=== PATIENT | male | born 1960 | race Caucasian/White ===

== ENCOUNTER 2025-08-27 07:22 | Outpatient (REF) | payer MEDICARE, SELFPAY ==
--- OUTSIDE RECORDS SUMMARY | 2025-08-27 07:30 | XMS_ITS | Encounter Summary ---
Author Organization [facility] Address [address] [place] [address] Care Team Providers Care Health And Safety Trainer Name Role Phone Kristine Resendez MD Primary Care Provider [phone] Encounter Details Date Type Department Care Team (Late Contact Info) Description 07/29/2025 Lab Requisition [facility] - Main Lab [address] [facility] [place] [address] Martir Valencia MD [address] [place] [address] Adult failure to thrive; Multiple sclerosis (CMS/HCC V24, CMS/HCC V28) Social History Tobacco Use Types Packs/Day Years Used Date Smoking Tobacco: Never Assessed Sex and Gender Information Value Date Recorded Sex Assigned at Not on file Legal Sex Male 10:24 PM EST Gender Identity Not on file Sexual Orientation Not on file documented as of this encounter Plan of Treatment Upcoming Encounters Date Type Department Care Team (Late Contact Info) Description 12/20/2025 4:00 PM EST Office Visit [facility] [address] [facility] [address] [place] [address] Rena Palumbo MD [address] [place], [place] [phone] documented as of this encounter Procedures Procedure Name Priority Date/Time Associated Diagnosis Comments COMPLETE BLOOD COUNT Routine 07/29/2025 7:35 AM EDT Adult failure to thrive Multiple sclerosis BASIC METABOLIC PANEL Routine 07/29/2025 7:35 AM EDT Adult failure to thrive Multiple sclerosis documented in this encounter Results * (ABNORMAL) Basic metabolic panel (07/29/2025 7:35 AM EDT) Sodium 143 133 - 145 mmol/L LAB CHEMISTRY METHOD 07/29/2025 11:[address] [facility] Potassium 3.8 3.5 - 5.5 mmol/L LAB CHEMISTRY METHOD 07/29/2025 11:[address] [facility] Chloride 108 96 - 110 mmol/L LAB CHEMISTRY METHOD 07/29/2025 11:[address] [facility] CO2 25 21 - 32 mmol/L LAB CHEMISTRY METHOD 07/29/2025 11:[address] [facility] Anion Gap 10 3 - 11 LAB CHEMISTRY METHOD 07/29/2025 11:[address] [facility] Glucose 92 70 - 100 mg/dL LAB CHEMISTRY METHOD 07/29/2025 11:[address] [facility] BUN 33(H) 5 - 25 mg/dL LAB CHEMISTRY METHOD 07/29/2025 11:[address] [facility] Creatinine 0.82 0.70 - 1.30 mg/dL LAB CHEMISTRY METHOD 07/29/2025 11:[address] [facility] eGFR 97 >=60 mL/min/1. 73m2 LAB CHEMISTRY METHOD 07/29/2025 11:[address] [facility] Comment:Calculation based on the Chronic Kidney Disease Epidemiology Collaboration (CKD-EPI) equation refit without adjustment for race. BUN/Creatinine Ratio 40.2 LAB CHEMISTRY METHOD 07/29/2025 11:[address] [facility] Calcium 8.9 8.5 - 10.5 mg/dL LAB CHEMISTRY METHOD 07/29/2025 11:[address] [facility] Blood Venous blood specimen / Unknown Venipuncture / Unknown 07/29/2025 7:35 AM EDT 07/29/2025 9:42 AM EDT Martir Valencia MD LAB BLOOD ORDERABLES Final Result [facility] [address] [place] [address], * Complete blood count (07/29/2025 7:35 AM EDT) WBC 4.9 4.8 - 10.8 K/mcL LAB HEMETOLOGY METHOD 07/29/2025 12:18 PM EDT [facility] RBC 5.30 4.50 - 5.50 M/mcL LAB HEMETOLOGY METHOD 07/29/2025 12:18 PM EDT [facility] Hemoglobin 14.9 13.5 - 17.5 g/dL LAB HEMETOLOGY METHOD 07/29/2025 12:18 PM EDT [facility] Hematocrit 45.6 42.0 - 54.0 % LAB HEMETOLOGY METHOD 07/29/2025 12:18 PM EDT [facility] MCV 86.9 79.0 - 98.0 FL LAB HEMETOLOGY METHOD 07/29/2025 12:18 PM EDT [facility] MCH 28.4 27.0 - 32.0 pcg LAB HEMETOLOGY METHOD 07/29/2025 12:18 PM EDT [facility] MCHC 32.7 32.0 - 37.0 g/dL LAB HEMETOLOGY METHOD 07/29/2025 12:18 PM EDT [facility] RDW 12.9 11.0 - 15.0 % LAB HEMETOLOGY METHOD 07/29/2025 12:18 PM EDT [facility] Platelets 187 130 - 400 K/mcL LAB HEMETOLOGY METHOD 07/29/2025 12:18 PM EDT [facility] MPV 10.3 7.0 - 11.0 FL LAB HEMETOLOGY METHOD 07/29/2025 12:18 PM EDT [facility] NRBC 0.0 <1.0 % LAB HEMETOLOGY METHOD 07/29/2025 12:18 PM EDT [facility] NRBC Absolute 0.00 <0.10 K/mcL LAB HEMETOLOGY METHOD 07/29/2025 12:18 PM EDT [facility] Blood Venous blood specimen / Unknown Venipuncture / Unknown 07/29/2025 7:35 AM EDT 07/29/2025 9:42 AM EDT us Martir Valencia MD LAB BLOOD ORDERABLES Final Result [facility] [address] [place] [address], documented in this encounter Visit Diagnoses Diagnosis Adult failure to thrive Multiple sclerosis documented in this encounter Care Teams Health And Safety Trainer Relationship Specialty Start Date End Date Kristine Resendez MD [address] [place] [address] PCP - General Senior Climate Advisor 11/07/20 documented as of this encounter
--- OUTSIDE RECORDS SUMMARY | 2025-08-27 07:30 | XMS_ITS ---
Author Name [facility] Organization Unknown History of Medication Use Medication Directions Dispensed Refills Start Date End Date Stat us Vumerity 231 MG CPDR TAKE 2 CAPSULES (462MG) BY MOUTH TWICE DAILY. 06/24/2023 active buPROPion (WELLBUTRIN XL) 150 MG 24 hr tablet Take 1 tablet (150 mg total) by mouth daily. 11/18/2020 active Cholecalciferol (Vitamin D3) 50 MCG (1999 UT) capsule Take by mouth. 08/18/2018 act alissa Problems Problem Status Onset Date Problem Type Date of Resolution Source Urinary retention active 2024-01-09 ProblemAct [facility] Constipation active 2024-01-09 ProblemAct [facility] Chronic indwelling Godwin catheter active 2024-01-09 ProblemAct [facility] Neurogenic bladder active 2024-01-09 ProblemAct [facility] Urinary urgency active 2024-01-[address] [facility] Vitamin D deficiency active 2024-01-09 ProblemAct [facility] Disease due to severe acute respiratory syndrome coronavirus 2 (SARS-CoV-2) active 2022-08-01 ProblemAct C [facility] Benign prostatic hyperplasia active 2009-09-09 ProblemAct [facility] Microscopic hematuria active 2024-01-09 ProblemAct [facility] Hypertriglyceridemia active 2024-01-09 ProblemAct [facility] Multiple sclerosis active 2024-01-09 ProblemAct [facility]
--- OUTSIDE RECORDS SUMMARY | 2025-08-27 07:30 | XMS_ITS | Encounter Summary ---
Author Organization [facility] Address [address] [place] [address] Care Team Providers Care Underwear Finisher Name Role Phone Kristine Resendez MD Primary Care Provider [phone] Encounter Details Date Type Department Care Team (Late Contact Info) Description 07/05/2025 Lab Requisition [facility] - Main Lab [address] [facility] [place] [address] Martir Valencia MD [address] [place] [address] Adult failure to thrive; Pure hyperglyceridemia; Trigeminal neuralgia Social History Tobacco Use Types Packs/Day Years [...] Description 12/20/2025 4:00 PM EST Office Visit [facility] [address] [facility] [address] [place] [address] Rena Palumbo MD [address] [place] [address] documented as of this encounter Procedures Procedure Name Priority Date/Time Associated Diagnosis Comments CBC WITH AUTO DIFFERENTIAL Routine 07/05/2025 8:50 AM EDT Adult failure to thrive Pure hyperglyceridemia Trigeminal neuralgia CBC AND DIFFERENTIAL Routine 07/05/2025 8:50 AM EDT Adult failure to thrive Pure hyperglyceridemia Trigeminal neuralgia COMPREHENSIVE METABOLIC PANEL Routine 07/05/2025 8:50 AM EDT Adult failure to thrive Pure hyperglyceridemia Trigeminal neuralgia documented in this encounter Results * (ABNORMAL) CBC auto differential (07/05/2025 8:50 AM EDT) [facility] WBC 7.9 4.8 - 10.8 K/mcL LAB HEMETOLOGY METHOD 07/05[facility]2025 [facility] RBC 5.80(H) 4.50 - 5.50 M/mcL LAB HEMETOLOGY METHOD 07/05/2025 1:08 PM [facility] Hemoglobin 16.4 13.5 - 17.5 g/dL LAB HEMETOLOGY METHOD 07/05/2025 1:08 PM [facility] Hematocrit 48.9 42.0 - 54.0 % LAB HEMETOLOGY METHOD 07/05/2025 1:08 PM [facility] MCV 84.9 79.0 - 98.0 FL LAB HEMETOLOGY METHOD 07/05/2025 1:08 PM [facility] MCH 28.5 27.0 - 32.0 pcg LAB HEMETOLOGY METHOD 07/05/2025 1:08 PM [facility] MCHC 33.5 32.0 - 37.0 g/dL LAB HEMETOLOGY METHOD 07/05/2025 1:08 PM [facility] RDW 12.6 11.0 - 15.0 % LAB HEMETOLOGY METHOD 07/05/2025 1:08 PM [facility] Platelets 311 130 - 400 K/mcL LAB HEMETOLOGY METHOD 07/05/2025 1:08 PM [facility] MPV 10.4 7.0 - 11.0 FL LAB HEMETOLOGY METHOD 07/05/2025 1:08 PM [facility] NRBC 0.0 <1.0 % LAB HEMETOLOGY METHOD 07/05/2025 1:08 PM [facility] NRBC Absolute 0.00 <0.10 K/mcL LAB HEMETOLOGY METHOD 07/05/2025 1:08 PM [facility] Neutrophils Relative 76.9 % LAB HEMETOLOGY METHOD 07/05/2025 1:08 PM [facility] Lymphocytes Relative 10.6 % LAB HEMETOLOGY METHOD 07/05/2025 1:08 PM [facility] Monocytes Relative 9.3 % LAB HEMETOLOGY METHOD 07/05/2025 1:08 PM [facility] Eosinophils Relative 1.6 % LAB HEMETOLOGY METHOD 07/05/2025 1:08 PM [facility] Basophils Relative 1.1 % LAB HEMETOLOGY METHOD 07/05/2025 1:08 PM [facility] Immature Granulocytes Relative 0.5 % LAB HEMETOLOGY METHOD 07/05/2025 1:08 PM [facility] Neutrophils Absolute 6.10 1.50 - 7.00 K/mcL LAB HEMETOLOGY METHOD 07/05/2025 1:08 PM [facility] Lymphocytes Absolute 0.84(L) 1.00 - 5.00 K/mcL LAB HEMETOLOGY METHOD 07/05/2025 1:08 PM [facility] Monocytes Absolute 0.74 0.20 - 1.00 K/mcL LAB HEMETOLOGY METHOD 07/05/2025 1:08 PM [facility] Eosinophils Absolute 0.13 0.00 - 0.50 K/mcL LAB HEMETOLOGY METHOD 07/05/2025 1:08 PM EDT [facility] Basophils Absolute 0.09 0.00 - 0.20 K/mcL LAB HEMETOLOGY METHOD 07/05/2025 1:08 PM EDT [facility] Immature Granulocytes Absolute 0.04(H) 0.00 - 0.03 K/mcL LAB HEMETOLOGY METHOD 07/05/2025 1:08 PM EDT [facility] Blood Venous blood specimen / Unknown Venipuncture / Unknown 07/05/2025 8:50 AM EDT 07/05/2025 11:34 AM EDT Martir Valencia MD LAB BLOOD ORDERABLES Final Result [facility] [address] [place] [address], * Comprehensive metabolic panel (07/05/2025 8:50 AM EDT) Sodium 137 133 - 145 mmol/L LAB CHEMISTRY METHOD 07/05/2025 1:27 PM [facility] Potassium 4.3 3.5 - 5.5 mmol/L LAB CHEMISTRY METHOD 07/05/2025 1:27 PM [facility] Chloride 105 96 - 110 mmol/L LAB CHEMISTRY METHOD 07/05/2025 1:27 PM [facility] CO2 24 21 - 32 mmol/L LAB CHEMISTRY METHOD 07/05/2025 1:27 PM [facility] Anion Gap 8 3 - 11 LAB CHEMISTRY METHOD 07/05/2025 1:27 PM [facility] Glucose 87 70 - 100 mg/dL LAB CHEMISTRY METHOD 07/05/2025 1:27 PM [facility] BUN 22 5 - 25 mg/dL LAB CHEMISTRY METHOD 07/05/2025 1:27 PM [facility] Creatinine 0.80 0.70 - 1.30 mg/dL LAB CHEMISTRY METHOD 07/05/2025 1:27 PM [facility] eGFR 98 >=60 mL/min/1. 73m2 LAB CHEMISTRY METHOD 07/05/2025 1:27 PM [facility] Comment:Calculation based on the Chronic Kidney Disease Epidemiology Collaboration (CKD-EPI) equation refit without adjustment for race. BUN/Creatinine Ratio 27.5 LAB CHEMISTRY METHOD 07/05/2025 1:27 PM [facility] Calcium 9.1 8.5 - 10.5 mg/dL LAB CHEMISTRY METHOD 07/05/2025 1:27 PM [facility] AST (SGOT) 19 10 - 42 unit/L LAB CHEMISTRY METHOD 07/05/2025 1:27 PM [facility] ALT (SGPT) 29 10 - 60 unit/L LAB CHEMISTRY METHOD 07/05/2025 1:27 PM [facility] Alkaline Phosphatase 78 42 - 121 unit/L LAB CHEMISTRY METHOD 07/05/2025 1:27 PM [facility] Total Protein 7.2 6.0 - 8.0 g/dL LAB CHEMISTRY METHOD 07/05/2025 1:27 PM [facility] Albumin 3.4 3.2 - 5.0 g/dL LAB CHEMISTRY METHOD 07/05/2025 1:27 PM [facility] Total Bilirubin 0.6 0.0 - 1.4 mg/dL LAB CHEMISTRY METHOD 07/05/2025 1:27 PM [facility] Blood Venous blood specimen / Unknown Venipuncture / Unknown 07/05/2025 8:50 AM EDT 07/05/2025 11:34 AM EDT us Martir Valencia MD LAB BLOOD ORDERABLES Final Result [facility] [address] [place] [address], documented in this encounter Visit Diagnoses Diagnosis Adult failure to thrive Pure hyperglyceridemia Trigeminal neuralgia documented in this encounter Care Teams Underwear Finisher Relationship Specialty Start Date End Date Kristine Resendez MD [address] [place] [address] PCP - General Spa Director/Finance 11/07/20 documented as of this encounter
--- OUTSIDE RECORDS SUMMARY | 2025-08-27 07:30 | XMS_ITS | Clinical Summary ---
Author Organization [facility] Address [address] [place] [address] Care Team Providers Care Travel Professional Name Role Phone Kristine Resendez MD Primary Care Provider [phone] Allergies No known active allergies Medications Medication Sig Dispensed Refills Start Date End Date Status buPROPion (WELLBUTRIN XL) 150 MG 24 hr tablet Take 1 tablet (150 mg total) by mouth daily. 30 tablet 11 11/18/2020 Active Cholecalciferol (Vitamin D3) 50 MCG (2000 UT) capsule Take by mouth. 0 08/18/2018 Act alissa Vumerity 231 MG CPDR TAKE 2 CAPSULES (462MG) BY MOUTH TWICE DAILY. 360 capsule 0 06/18/2024 Active Active Problems Problem Noted Date Diagnosed Date Chronic indwelling Godwin catheter 01/09/2024 01/09/2024 Constipation 01/09/2024 01/09/2024 Hypertriglyceridemia 01/09/2024 01/09/2024 Microscopic hematuria 01/09/2024 01/09/2024 Overview: workup including ultrasound and cystoscopy negative Multiple sclerosis 01/09/2024 01/09/2024 Neurogenic bladder 01/09/2024 01/09/2024 Urinary retention 01/09/2024 01/09/2024 Urinary urgency 01/09/2024 01/09/2024 Vitamin D deficiency 01/09/2024 01/09/2024 Disease due to severe acute respiratory syndrome coronavirus 2 (SARS-CoV-2) 08/01/2022 01/09/2024 Overview: Problem added by Discern Expert Problem added by Discern Expert Benign prostatic hyperplasia 09/09/2009 Overview: seen by ultrasound of bladder Social History Tobacco Use Types Packs/Day Years Used Date Smoking Tobacco: Never Assessed Sex and Gender Information Value Date Recorded Sex Assigned at Male 11/07/2020 12:30 PM EST Gender Identity Not on file Sexual Orientation Not on file Job Start Date Occupation Industry Not on file Not on file Not on file Last Filed Vital Signs Vital Sign Reading Time Taken Comments Blood Pressure 117/84 12/27/2022 1:48 PM EST Pulse 92 12/27/2022 1:48 PM EST Temperature 36.1 C (96.9 F) 12/27/2022 1:48 PM EST Respiratory Rate - - Oxygen Saturation 94% 12/27/2022 1:48 PM EST Inhaled Oxygen Concentration - - Weight 81.6 kg (180 lb) 03/24/2021 10:48 AM EDT Height 170.2 cm (5' 7 ) 03/24/2021 10:48 AM EDT Body Mass Index 28.19 03/24/2021 10:48 AM EDT Plan of Treatment Health Maintenance Due Date Last Done Comments Hepatitis C Screening 1959 COVID-19 Vaccine (#1) 1959 Depression Screening 1971 BMI Counseling 1977 Preventative Health Evaluation 1977 Colon Cancer Screening (Colonoscopy) 02/21/2004 Shingrix-Zoster Vaccine (1 o f 2) 2009 DTap / Tdap / Td (2 - Tdap) 08/30/2014 08/30/2004 Fall Risk Assessment 02/21/2024 Pneumococcal Vaccine (3 of 3 - PPSV23 or PCV20) 02/21/2024 08/02/2015, 08/30/2004 Influenza Vaccine (#1) 2025 08/13/2017 RSV Adult > 60+ Yrs or (1 - 1-dose 75+ series) 2034 Hepatitis B Vaccines Aged Out No long er eligible based on patient's age to complete this topic RSV Ped < 20 months Aged Out No longe r eligible based on patient's age to complete this topic Care Teams Travel Professional Relationship Specialty Start Date End Date Kristine Resendez MD [address] [address] PCP - General Lumber Chain Offbearer 11/07/20
--- OUTSIDE RECORDS SUMMARY | 2025-08-27 07:30 | XMS_ITS | Encounter Summary ---
Author Organization [facility] Address [address] [place] [address] Care Team Providers Care Sharepoint Specialist Name Role Phone Kristine Resendez MD Primary Care Provider [phone] Encounter Details Date Type Department Care Team (Late Contact Info) Description 07/14/2025 Lab Requisition [facility] - Main Lab [address] [facility] [place] [address] Martir Valencia MD [address] [place] [address] Essential (primary) hypertension Social History Tobacco Use Types Packs/Day Years [...] Description 12/20/2025 4:00 PM EST Office Visit [facility] [address] [facility] [address] [place] [phone] Rena Palumbo MD [address] [place] [address] documented as of this encounter Procedures Procedure Name Priority Date/Time Associated Diagnosis Comments COMPLETE BLOOD COUNT Routine 07/14/2025 6:32 AM EDT Essential (primary) hypertension BASIC METABOLIC PANEL Routine 07/14/2025 6:32 AM EDT Essential (primary) hypertension documented in this encounter Results * (ABNORMAL) Basic metabolic panel (07/14/2025 6:32 AM EDT) Sodium 142 133 - 145 mmol/L LAB CHEMISTRY METHOD 07/14/2025 12:35 PM [facility] Potassium 4.1 3.5 - 5.5 mmol/L LAB CHEMISTRY METHOD 07/14/2025 12:35 PM [facility] Chloride 109 96 - 110 mmol/L LAB CHEMISTRY METHOD 07/14/2025 12:35 PM [facility] CO2 26 21 - 32 mmol/L LAB CHEMISTRY METHOD 07/14/2025 12:35 PM [facility] Anion Gap 7 3 - 11 LAB CHEMISTRY METHOD 07/14/2025 12:35 PM [facility] Glucose 81 70 - 100 mg/dL LAB CHEMISTRY METHOD 07/14/2025 12:35 PM [facility] BUN 29(H) 5 - 25 mg/dL LAB CHEMISTRY METHOD 07/14/2025 12:35 PM [facility] Creatinine 0.81 0.70 - 1.30 mg/dL LAB CHEMISTRY METHOD 07/14/2025 12:35 PM [facility] eGFR 97 >=60 mL/min/1. 73m2 LAB CHEMISTRY METHOD 07/14/2025 12:35 PM [facility] Comment:Calculation based on the Chronic Kidney Disease Epidemiology Collaboration (CKD-EPI) equation refit without adjustment for race. BUN/Creatinine Ratio 35.8 LAB CHEMISTRY METHOD 07/14/2025 12:35 PM [facility] Calcium 8.9 8.5 - 10.5 mg/dL LAB CHEMISTRY METHOD 07/14/2025 12:35 PM [facility] Blood Venous blood specimen / Unknown Venipuncture / Unknown 07/14/2025 6:32 AM EDT 07/14/2025 10:40 AM EDT Martir Valencia MD LAB BLOOD ORDERABLES Final Result [facility] [address] [place] [address], [place] [phone] * Complete blood count (07/14/2025 6:32 AM EDT) WBC 5.8 4.8 - 10.8 K/mcL LAB HEMETOLOGY METHOD 07/14/2025 11:06 AM EDT [facility] RBC 5.30 4.50 - 5.50 M/mcL LAB HEMETOLOGY METHOD 07/14/2025 11:06 AM [facility] Hemoglobin 15.2 13.5 - 17.5 g/dL LAB HEMETOLOGY METHOD 07/14/2025 11:06 AM [facility] Hematocrit 46.1 42.0 - 54.0 % LAB HEMETOLOGY METHOD 07/14/2025 11:06 AM [facility] MCV 87.3 79.0 - 98.0 FL LAB HEMETOLOGY METHOD 07/14/2025 11:06 AM [facility] MCH 28.8 27.0 - 32.0 pcg LAB HEMETOLOGY METHOD 07/14/2025 11:06 AM [facility] MCHC 33.0 32.0 - 37.0 g/dL LAB HEMETOLOGY METHOD 07/14/2025 11:06 AM [facility] RDW 12.7 11.0 - 15.0 % LAB HEMETOLOGY METHOD 07/14/2025 11:06 AM [facility] Platelets 252 130 - 400 K/mcL LAB HEMETOLOGY METHOD 07/14/2025 11:06 AM [facility] MPV 10.2 7.0 - 11.0 FL LAB HEMETOLOGY METHOD 07/14/2025 11:06 AM EDT [facility] NRBC 0.0 <1.0 % LAB HEMETOLOGY METHOD 07/14/2025 11:06 AM EDT [facility] NRBC Absolute 0.00 <0.10 K/mcL LAB HEMETOLOGY METHOD 07/14/2025 11:06 AM EDT [facility] Blood Venous blood specimen / Unknown Venipuncture / Unknown 07/14/2025 6:32 AM EDT 07/14/2025 10:40 AM EDT us Martir Valencia MD LAB BLOOD ORDERABLES Final Result [facility] [address] [place] [address], documented in this encounter Visit Diagnoses Diagnosis Essential (primary) hypertension Unspecified essential hypertension documented in this encounter Care Teams Sharepoint Specialist Relationship Specialty Start Date End Date Kristine Resendez MD [address] [place] [address] PCP - General Canceling Machine Operator 11/07/20 documented as of this encounter
--- OUTSIDE RECORDS SUMMARY | 2025-08-27 07:31 | XMS_ITS | Encounter Summary ---
Author Organization [facility] Address [address] [place] [address] Care Team Providers Care Professor Of Archaeology Name Role Phone Kristine Resendez MD Primary Care Provider [phone] Encounter Details Date Type Department Care Team (Late st Contact Info) Description 11/25/2024 Lab Requisition [facility] - Main Lab [address] [facility] [place] [phone] Melissa Morales PA [address] [place] [address] Gross hematuria Social History Tobacco Use Types Packs/Day Years Used Date Smoking Tobacco: Never Assessed Sex and Gender Information Value Date Recorded Sex Assigned at Not on file Legal Sex Male 10:24 PM EST Gender Identity Not on file Sexual Orientation Not on file documented as of this encounter Plan of Treatment Upcoming Encounters Date Type Department Care Team (Late st Contact Info) Description 12/20/2025 4:00 PM EST Office Visit [facility] [address] [facility] [address] [place] [phone] Rena Palumbo MD [address] [place] [address] documented as of this encounter Procedures Procedure Name Priority Date/Time Associated Diagnosis Comments AP OUTSIDE CONSULT Routine 11/18/2024 12 :00 AM EST Gross hematuria documented in this encounter Results * Anatomic pathology outside consult (11/18/2024 12:00 AM EST) Final Diagnosis A. Urine, Ileal Conduit: Negative for high grade urothelial carcinoma. Scant urothelial cellularity. Results of UroVysion fluorescence in situ hybridization (FISH) testing: CEP3: Normal CEP7: Normal CEP17: Normal LSI 9p21: Normal Interpretation: Normal profile Controls stained appropriately. Note: The results are intended as a screening device and should be interpreted in association with other clinical and pathological findings. 12/04/2024 5:22 PM EST [facility] Clinical Information Gross hematuria R31.0 Urine Cytology/FISH (now) 12/04/2024 5:22 PM [facility] Gross Description A. Ileal Conduit, [id number]: Received is one ThinPrep slide for cytology screen and one ThinPrep slide for UroVysion FISH 12/04/2024 5:22 PM [facility] Disclaimer Unless otherwise specified, all tissue is 10% NB formalin fixed and paraffin embedded. Technical pathology services provided by [facility] at [address], [place] [address] (CLIA #[id number]/Caro Faye MD, Wafer Fabricator) 12/04/2024 5:22 PM [facility] Tissue Ileal biopsy specimen / Unknown 11/18/2024 11/25/2024 11:50 AM EST Melissa RAMIREZ LAB PATHOLOGY ORDERABLES Joi l Result [facility] [address] [place] [address], documented in this encounter Visit Diagnoses Diagnosis Gross hematuria documented in this encounter Care Teams Professor Of Archaeology Relationship Specialty Start Date End Date Kristine Resendez MD [address] [place] [address] PCP - General Experience Specialist 11/07/20 documented as of this encounter
--- OUTSIDE RECORDS SUMMARY | 2025-08-27 07:31 | XMS_ITS | Clinical Summary ---
Author Organization [address] [facility] Address [address] [place] [address] Phone Care Team Providers Care All Around Presser Name Role Phone Kristine Resendez MD Primary Care Provider [phone] Allergies Active Allergy Reactions Criticality Noted Date Comments Pollen Extracts 05/28/2025 Medications buPROPion XL (WELLBUTRIN XL) 150 mg 24 hr tablet Take 1 tablet (150 mg total) by mouth. 11/18/2020 Active B complex tablet Take 1 tablet by mouth 1 (one) time each day. Active gabapentin (Neurontin) 100 mg capsule Take 3 capsules (300 mg total) by mouth 3 (three) times a day. 270 each 11 06/21/2025 06/21/20 26 Active Active Problems Problem Noted Date Diagnosed Date MS (multiple sclerosis) 01/09/2024 Benign prostate hyperplasia 01/09/2024 Chronic indwelling Godwin catheter 01/09/2024 Constipation 01/09/2024 Disease due to severe acute respiratory syndrome coronavirus 2 (SARS-CoV-2) 01/09/2024 Hypertriglyceridemia 01/09/2024 Microscopic hematuria 01/09/2024 Neurogenic bladder 01/09/2024 Urinary retention 01/09/2024 Urinary urgency 01/09/2024 Vitamin D deficiency 01/09/2024 Encounters Date Type Department Care Team Description 07/29/2025 Lab Requisition [facility] - Main Lab [address] [facility] [place] [address] Martir Valencia MD Adult failure to thrive; Multiple sclerosis ([facility] V24, [facility] V28) 07/14/2025 Lab Requisition [facility] - Main Lab [address] [place] [phone] Martir Valencia MD Essential (primary) hypertension 07/05/2025 Lab Requisition [facility] - Main Lab [address] [place] [phone] Martir Valencia MD Adult failure to thrive; Pure hyperglyceridemia; Trigeminal neuralgia 06/25/2025 11:00 AM EDT Telemedicine [facility] [address] [phone] Lea Torres PA MS (multiple sclerosis) ([facility] V24, [facility] V28) (Primary Dx) 06/09/[address] [phone] Lea Torres PA 06/01/2025 Telephone [facility] - [address] [phone] Hermelinda Weaver [place] 05/28/2025 1:30 PM EDT Telemedicine [facility] [address] [phone] Lea Torres PA MS (multiple sclerosis) ([facility] V24, [facility] V28) (Primary Dx) from Last 3 Months Surgical History Surgery Date Site/Laterality Comments OTHER SURGICAL HISTORY PROCEDURE:super pubic Medical History Medical History Date Comments MS (multiple sclerosis) DX:MS (m ultiple sclerosis) ([facility]) Social History Tobacco Use Types Packs/Day Years Used Date Smoking Tobacco: Never Assessed Sex and Gender Information Value Date Recorded Sex Assigned at Not on file Legal Sex Male 10:24 PM EST Gender Identity Not on file Sexual Orientation Not on file Obstetrics History Last Filed Vital Signs Vital Sign Reading Time Taken Comments Blood Pressure 128/88 01/21/2025 3:02 PM EDT Pulse 89 01/21/2025 3:02 PM EDT Temperature 36 C (96.8 F) 01/21/2025 3:02 PM EDT Respiratory Rate - - Oxygen Saturation 96% 01/21/2025 3:02 PM EDT Inhaled Oxygen Concentration - - Weight - - Height - - Body Mass Index - - Plan of Treatment Upcoming Encounters Date Type Department Care Team (Late st Contact Info) Description 12/20/2025 4:00 PM EST Office Visit [facility] [address] [facility] [address] [place] [phone] Rena Palumbo MD [address] [place] [address] Health Maintenance Due Date Last Done Comments Colorectal Cancer Screening: Colonoscopy 1960 Zoster Vaccines (1 of 2) 2009 Pneumococcal Vaccine: 50+ Years (3 of 3 - PCV20 or PCV21) 08/02/2020 08/02/2015, 08/30/2004 Abdominal Aortic Aneurysm (AAA) Screen 10/14/2022 Cholesterol Screening (Lipid Panel) 10/14/2022 Hepatitis C Screening 10/14/2022 Social Influencers of Health Screening 10/14/2022 Medicare Annual Wellness Visit 11/07/2023 11/07/2022 Falls Risk Assessment 02/21/2024 DTaP,Tdap,and Td Vaccines (4 - Td or Tdap) 07/06/2024 07/06/2014, 02/25/2014, 08/30/2004 Depression Screening 11/11/2024 COVID-19 Vaccine (1 - 2023-2 5 season) 2025 Influenza Vaccine (#1) 2025 08/13/2017 Hypertension/CHF/CAD Annual BMP Blood Test 07/29/2026 07/29/2025, 07/14/2025, 07/05/2025 RSV Immunization Adult Patients (1 - 1-dose 75+ series) 2034 HIB Vaccines Aged Out No longer eligi ble based on patient's age to complete this topic HPV Vaccines Aged Out No longer eligi ble based on patient's age to complete this topic Hepatitis A Vaccines Aged Out No long er eligible based on patient's age to complete this topic Hepatitis B Vaccines Aged Out No long er eligible based on patient's age to complete this topic IPV Vaccines Aged Out No longer eligi ble based on patient's age to complete this topic MMR Vaccines Aged Out No longer eligi ble based on patient's age to complete this topic Meningococcal ACWY Vaccine Aged Out N o longer eligible based on patient's age to complete this topic Meningococcal B Vaccine Aged Out No l onger eligible based on patient's age to complete this topic RSV Immunization Patients Under 20 months Aged Out No longer eligible b ased on patient's age to complete this topic Varicella Vaccines Aged Out No longer eligible based on patient's age to complete this topic Procedures Procedure Name Priority Date/Time Associated Diagnosis Comments BASIC METABOLIC PANEL Routine 07/29/2025 7:35 AM EDT Adult failure to thrive Multiple sclerosis COMPLETE BLOOD COUNT Routine 07/29/2025 7:35 AM EDT Adult failure to thrive Multiple sclerosis BASIC METABOLIC PANEL Routine 07/14/2025 6:32 AM EDT Essential (primary) hypertension COMPLETE BLOOD COUNT Routine 07/14/2025 6:32 AM EDT Essential (primary) hypertension CBC WITH AUTO DIFFERENTIAL Routine 07/05/2025 8:50 AM EDT Adult failure to thrive Pure hyperglyceridemia Trigeminal neuralgia COMPREHENSIVE METABOLIC PANEL Routine 07/05/2025 8:50 AM EDT Adult failure to thrive Pure hyperglyceridemia Trigeminal neuralgia CBC AND DIFFERENTIAL Routine 07/05/2025 8:50 AM EDT Adult failure to thrive Pure hyperglyceridemia Trigeminal neuralgia from Last 3 Months Results * Complete blood count (07/29/2025 7:35 AM EDT) Only the most recent of2 resultswithin the time period is included. WBC 4.9 4.8 - 10.8 K/mcL LAB HEMETOLOGY METHOD 07/29/2025 12:18 PM EDT [facility] RBC 5.30 4.50 - 5.50 M/mcL LAB HEMETOLOGY METHOD 07/29/2025 12:18 PM EDT [facility] Hemoglobin 14.9 13.5 - 17.5 g/dL LAB HEMETOLOGY METHOD 07/29/2025 12:18 PM [facility] Hematocrit 45.6 42.0 - 54.0 % LAB HEMETOLOGY METHOD 07/29/2025 12:18 PM [facility] MCV 86.9 79.0 - 98.0 FL LAB HEMETOLOGY METHOD 07/29/2025 12:18 PM [facility] MCH 28.4 27.0 - 32.0 pcg LAB HEMETOLOGY METHOD 07/29/2025 12:18 PM [facility] MCHC 32.7 32.0 - 37.0 g/dL LAB HEMETOLOGY METHOD 07/29/2025 12:18 PM [facility] RDW 12.9 11.0 - 15.0 % LAB HEMETOLOGY METHOD 07/29/2025 12:18 PM [facility] Platelets 187 130 - 400 K/mcL LAB HEMETOLOGY METHOD 07/29/2025 12:18 PM [facility] MPV 10.3 7.0 - 11.0 FL LAB HEMETOLOGY METHOD 07/29/2025 12:18 PM [facility] NRBC 0.0 <1.0 % LAB HEMETOLOGY METHOD 07/29/2025 12:18 PM [facility] NRBC Absolute 0.00 <0.10 K/mcL LAB HEMETOLOGY METHOD 07/29/2025 12:18 PM [facility] Blood Venous blood specimen / Unknown Venipuncture / Unknown 07/29/2025 7:35 AM EDT 07/29/2025 9:42 AM EDT us Martir Valencia MD LAB BLOOD ORDERABLES Final Result [facility] [address] [place] [address], * (ABNORMAL) Basic metabolic panel (07/29/2025 7:35 AM EDT) Only the most recent of2 resultswithin the time period is included. Sodium 143 133 - 145 mmol/L LAB CHEMISTRY METHOD 07/29/2025 11:18 AM [facility] Potassium 3.8 3.5 - 5.5 mmol/L LAB CHEMISTRY METHOD 07/29/2025 11:18 AM [facility] Chloride 108 96 - 110 mmol/L LAB CHEMISTRY METHOD 07/29/2025 11:18 AM [facility] CO2 25 21 - 32 mmol/L LAB CHEMISTRY METHOD 07/29/2025 11:18 AM [facility] Anion Gap 10 3 - 11 LAB CHEMISTRY METHOD 07/29/2025 11:18 AM [facility] Glucose 92 70 - 100 mg/dL LAB CHEMISTRY METHOD 07/29/2025 11:18 AM [facility] BUN 33(H) 5 - 25 mg/dL LAB CHEMISTRY METHOD 07/29/2025 11:18 AM [facility] Creatinine 0.82 0.70 - 1.30 mg/dL LAB CHEMISTRY METHOD 07/29/2025 11:18 AM [facility] eGFR 97 >=60 mL/min/1. 73m2 LAB CHEMISTRY METHOD 07/29/2025 11:18 AM [facility] Comment:Calculation based on the Chronic Kidney Disease Epidemiology Collaboration (CKD-EPI) equation refit without adjustment for race. BUN/Creatinine Ratio 40.2 LAB CHEMISTRY METHOD 07/29/2025 11:18 AM [facility] Calcium 8.9 8.5 - 10.5 mg/dL LAB CHEMISTRY METHOD 07/29/2025 11:18 AM EDT [facility] Blood Venous blood specimen / Unknown Venipuncture / Unknown 07/29/2025 7:35 AM EDT 07/29/2025 9:42 AM EDT Martir Valencia MD LAB BLOOD ORDERABLES Final Result [facility] [address] [place] [address], [place] [phone] * (ABNORMAL) CBC auto differential (07/05/2025 8:50 AM EDT) WBC 7.9 4.8 - 10.8 K/mcL LAB HEMETOLOGY METHOD 07/05/2025 1:08 PM EDT [facility] RBC 5.80(H) 4.50 - 5.50 M/mcL LAB HEM[facility]OLOGY [facility] Hemoglobin 16.4 13.5 - 17.5 g/dL LAB HEMETOLOGY METHOD 07/05[facility] Hematocrit 48.9 42.0 - 54.0 % LAB HEMETOLOGY METHOD 07/05/2025 1:08 PM EDT [facility] MCV 84.9 79.0 - 98.0 FL LAB HEMETOLOGY METHOD 07/05[facility]2025 [facility] MCH 28.5 27.0 - 32.0 pcg LAB HEMETOLOGY METHOD 07/05/2025 1:08 PM [facility] MCHC 33.5 32.0 - 37.0 g/dL LAB HEMETOLOGY METHOD 07/05/2025 1:08 PM EDT [facility] RDW 12.6 11.0 - 15.0 % LAB HEMETOLOGY METHOD 07/05/2025 1:08 PM [facility] Platelets 311 130 - 400 K/mcL LAB HEMETOLOGY METHOD 07/05/2025 1:08 PM [facility] MPV 10.4 7.0 - 11.0 FL LAB HEMETOLOGY METHOD 07/05/2025 1:08 PM [facility] NRBC 0.0 <1.0 % LAB HEMETOLOGY METHOD 07/05/2025 1:08 PM [facility] NRBC Absolute 0.00 <0.10 K/mcL LAB HEMETOLOGY METHOD 07/05/2025 1:08 PM [facility] Neutrophils Relative 76.9 % LAB HEMETOLOGY METHOD 07/05/2025 1:08 PM [facility] Lymphocytes Relative 10.6 % LAB HEMETOLOGY METHOD 07/05/2025 1:08 PM [facility] Monocytes Relative 9.3 % LAB HEMETOLOGY METHOD 07/05/2025 1:08 PM [facility] Eosinophils Relative 1.6 % LAB HEMETOLOGY METHOD 07/05/2025 1:08 PM [facility] Basophils Relative 1.1 % LAB HEMETOLOGY METHOD 07/05/2025 1:08 PM [facility] Immature Granulocytes Relative 0.5 % LAB HEMETOLOGY METHOD 07/05/2025 1:08 PM [facility] Neutrophils Absolute 6.10 1.50 - 7.00 K/mcL LAB HEMETOLOGY METHOD 07/05/2025 1:08 PM [facility] Lymphocytes Absolute 0.84(L) 1.00 - 5.00 K/mcL LAB HEMETOLOGY METHOD 07/05/2025 1:08 PM [facility] Monocytes Absolute 0.74 0.20 - 1.00 K/mcL LAB HEMETOLOGY METHOD 07/05/2025 1:08 PM EDT [facility] Eosinophils Absolute 0.13 0.00 - 0.50 K/[facility] LAB HEMETOLOGY METHOD 07/05/2025 1:08 PM EDT [facility] Basophils Absolute 0.09 0.00 - 0.20 K/[facility] LAB HEMETOLOGY METHOD 07/05/2025 1:08 PM EDT [facility] Immature Granulocytes Absolute 0.04(H) 0.00 - 0.03 K/[facility] LAB HEMETOLOGY METHOD 07/05/2025 1:08 PM EDT [facility] Blood Venous blood specimen / Unknown Venipuncture / Unknown 07/05/2025 8:50 AM EDT 07/05/2025 11:34 AM EDT Martir Valencia MD LAB BLOOD ORDERABLES Final Result [facility] [address] [place] [address], * Comprehensive metabolic panel (07/05/2025 8:50 AM EDT) Sodium 137 133 - 145 mmol/L LAB CHEMISTRY METHOD 07/05/2025 1:27 PM [facility] Potassium 4.3 3.5 - 5.5 mmol/L LAB CHEMISTRY METHOD 07/05/2025 1:27 PM [facility] Chloride 105 96 - 110 mmol/L LAB CHEMISTRY METHOD 07/05/2025 1:27 PM [facility] CO2 24 21 - 32 mmol/L LAB CHEMISTRY METHOD 07/05/2025 1:27 PM [facility] Anion Gap 8 3 - 11 LAB CHEMISTRY METHOD 07/05/2025 1:27 PM [facility] Glucose 87 70 - 100 mg/dL LAB CHEMISTRY METHOD 07/05/2025 1:27 PM [facility] BUN 22 5 - 25 mg/dL LAB CHEMISTRY METHOD 07/05/2025 1:27 PM [facility] Creatinine 0.80 0.70 - 1.30 mg/dL LAB CHEMISTRY METHOD 07/05/2025 1:27 PM [facility] eGFR 98 >=60 mL/min/1. 73m2 LAB CHEMISTRY METHOD 07/05/2025 1:27 PM [facility] Comment:Calculation based on the Chronic Kidney Disease Epidemiology Collaboration (CKD-EPI) equation refit without adjustment for race. BUN/Creatinine Ratio 27.5 LAB CHEMISTRY METHOD 07/05/2025 1:27 PM [facility] Calcium 9.1 8.5 - 10.5 mg/dL LAB CHEMISTRY METHOD 07/05/2025 1:27 PM [facility] AST (SGOT) 19 10 - 42 unit/L LAB CHEMISTRY METHOD 07/05/2025 1:27 PM [facility] ALT (SGPT) 29 10 - 60 unit/L LAB CHEMISTRY METHOD 07/05/2025 1:27 PM [facility] Alkaline Phosphatase 78 42 - 121 unit/L LAB CHEMISTRY METHOD 07/05/2025 1:27 PM [facility] Total Protein 7.2 6.0 - 8.0 g/dL LAB CHEMISTRY METHOD 07/05/2025 1:27 PM [facility] Albumin 3.4 3.2 - 5.0 g/dL LAB CHEMISTRY METHOD 07/05/2025 1:27 PM [facility] Total Bilirubin 0.6 0.0 - 1.4 mg/dL LAB CHEMISTRY METHOD 07/05/2025 1:27 PM [facility] Blood Venous blood specimen / Unknown Venipuncture / Unknown 07/05/2025 8:50 AM EDT 07/05/2025 11:34 AM EDT us Martir Valencia MD LAB BLOOD ORDERABLES Final Result [facility] [address] [place] [address], [place] [phone] from Last 3 Months Insurance MEDICARE [facility] Care Teams All Around Presser Relationship Specialty Start Date End Date Kristine Resendez MD [address] [place] [address] PCP - General Field Mechanic/Site Lead 11/07/20
[2025-08-27 07:47] LABS: Hematocrit 45.2 % (42.0-52.0); Hemoglobin 15.0 g/dl (14.0-18.0); Imm Gran Abs Auto 0.03 X10*3/uL (0.00-0.03); Imm Gran Pct Auto 0.4 % (0.0-0.4); Lymphocytes Absolute Auto 1.0 X10*3/uL (1.2-4.9); MANUAL DIFF FLAG NO; Mean Corpuscular HGB Conc 33.2 g/dl (31.0-36.0); Mean Corpuscular Hemoglobin 28.7 pg (27.0-33.0); Mean Corpuscular Volume 86.6 fL (80.0-98.0); NRBC Abs Auto 0.000 X10*3/uL (0.0-0.012); NRBC Pct Auto 0.0 /100WBC (0.0-0.2); Platelet Count 210 X10*3/uL (160-400); Red Blood Count 5.22 X10*6/uL (4.60-5.80); White Blood Count 6.7 X10*3/uL (4.8-10.8)
[2025-08-27 08:08] LABS: Alanine Aminotransferase 31 U/L (0-40); Albumin Level 3.8 g/dL (3.5-5.0); Alkaline Phosphatase 58 U/L (39-117); Anion Gap 14 (12-20); Aspartate Amino Transferase 32 U/L (5-37); Blood Urea Nitrogen 32 mg/dL (9-16); Calcium 8.9 mg/dL (8.4-10.2); Carbon Dioxide 22 mmol/L (22-29); Chloride 110 mmol/L (96-108); Cholesterol 215 mg/dL (<200); Estimated Glomerular Filt Rate > 60; HDL Cholesterol 28 mg/dL (>40); Potassium 3.9 mmol/L (3.3-5.1); Sodium 142 mmol/L (135-145); Total Protein 6.6 g/dL (6.5-8.0); Triglycerides 445 mg/dL (<150)
[2025-08-27 08:20] LABS: Vitamin B12 1547 pg/mL (200-900)
[2025-08-30 10:23] LABS: TS Negative Control Passed; TS Panel A 1; TS Panel B 0; TS Positive Control Passed; TSpotTB Negative (Negative)
== END 2025-08-27 07:23 | disposition home or self-care (01) ==
LOC: HO.HSH2W 07:22
PROVIDERS: Visit Provider Internal Medicine Interventional Cardiology
DX: Z11.1 Encounter for screening for respiratory tuberculosis (principal); Z13.6 Encounter for screening for cardiovascular disorders; Z13.0 Encounter for screening for diseases of the blood and blood-forming organs and certain disorders involving the immune mechanism
CPT/HCPCS: 36415; 80053; 80061; 82306; 82607; 85025; 86481

== ENCOUNTER 2025-10-18 20:09 | Inpatient (IN) | payer MEDICARE, SELFPAY ==
[2025-10-18] VITALS (9 sets, daily range): BP systolic 103–117; BP diastolic 68–87; PULSE 88–107; RESP 17–26; TEMP 37.4–38.2; O2SAT 91–97; BMI 27.9
--- NOTE | ~2025-10-18 | XR_ITS ---
CLINICAL HISTORY: SOB 1 view chest x-ray Comparison: None provided Findings: Lungs are clear without acute infiltrates. No pneumothorax. Heart size enlarged. No acute bony abnormalities. Impression: No acute processes This document has been electronically signed by: Radu Hills MD on 10/18/2025 23:06:03
--- NOTE | 2025-10-18 20:29 | ECG_ITS ---
Test Reason : AMS Blood Pressure : */* mmHG Vent. Rate : 102 BPM Atrial Rate : 102 BPM P-R Int : 152 ms QRS Dur : 62 ms QT Int : 348 ms P-R-T Axes : 52 -22 -32 degrees QTcB Int : 453 ms Poor data quality Sinus tachycardia Possible Inferior infarct , age undetermined Abnormal ECG No previous ECGs available Repeat EKG Referred By: Generic ED Physician Electronically Signed By: BALJINDER CERON MD
[2025-10-18 21:17] LABS: MANUAL DIFF FLAG NO
[2025-10-18 21:26] LABS: Appearance Urine Turbid; Glucose Urine UA Negative (Negative); PH 5.5 (5.0-9.0); Specific Gravity - Urine 1.025 (1.005-1.025); UMIC TRIGGER UACC YES
[2025-10-18 21:29] LABS: Hematocrit 48.6 % (42.0-52.0); Hemoglobin 15.9 g/dl (14.0-18.0); Imm Gran Abs Auto 0.05 X10*3/uL (0.00-0.03); Imm Gran Pct Auto 0.5 % (0.0-0.4); Lymphocytes Absolute Auto 1.0 X10*3/uL (1.2-4.9); Mean Corpuscular HGB Conc 32.7 g/dl (31.0-36.0); Mean Corpuscular Hemoglobin 29.2 pg (27.0-33.0); Mean Corpuscular Volume 89.2 fL (80.0-98.0); NRBC Abs Auto 0.000 X10*3/uL (0.0-0.012); NRBC Pct Auto 0.0 /100WBC (0.0-0.2); Platelet Count 234 X10*3/uL (160-400); Red Blood Count 5.45 X10*6/uL (4.60-5.80); White Blood Count 10.2 X10*3/uL (4.8-10.8)
[2025-10-18 21:31] LABS: Alanine Aminotransferase 27 U/L (0-40); Albumin Level 3.9 g/dL (3.5-5.0); Alkaline Phosphatase 63 U/L (39-117); Anion Gap 14 (12-20); Aspartate Amino Transferase 22 U/L (5-37); Blood Urea Nitrogen 33 mg/dL (9-16); Calcium 9.1 mg/dL (8.4-10.2); Carbon Dioxide 26 mmol/L (22-29); Chloride 108 mmol/L (96-108); Creatinine Clr Calc Pharmacy 70.4; Estimated Glomerular Filt Rate > 60; Magnesium 1.8 mg/dL (1.6-2.6); Potassium 4.0 mmol/L (3.3-5.1); Sodium 144 mmol/L (135-145); Total Protein 7.7 g/dL (6.5-8.0)
[2025-10-18 21:35] LABS: Cannabinoid Screen Urine Not Detected (Not Detect)
[2025-10-18 21:38] LABS: Troponin-I High Sensitivity < 2.7 ng/L (<3.5-35.0)
[2025-10-18 21:40] LABS: Glucose, Whole Blood 91 mg/dL (60-115)
--- NOTE | 2025-10-18 21:51 | ED.AMS ---
HPI - Altered Mental Status General Chief Complaint: Altered Mental Status Stated Complaint: ?sepsis, ?uti Time Seen by Provider: 10/18/25 21:07 Source: patient, EMS, RN notes reviewed and old records reviewed Mode of arrival: EMS Limitations: altered mental status History of Present Illness ED Provider: Dr. Ally Santiago HPI narrative: 65-year-old male with a history of MS, dementia, suprapubic catheter coming from the [facility] with reported altered mental status, unresponsive episode. His suprapubic catheter was not draining today and reportedly had to be changed. EMS was originally called earlier in the day but did not transport the patient. EMS was called for a 2nd time and he was ultimately transported. Initially somewhat hypotensive with a recorded blood pressure of 75/68 from the [facility] paperwork with a heart rate of 120. Patient was initially afebrile however spiked a temperature here in the emergency department at 100.6?. Initial oxygen level 93% on 2 L nasal cannula. No reports of cough. Patient is somewhat unresponsive though he does wake to verbal stimulation. Responds with yes or no answers. Denies pain or shortness of breath. No further information available at this point. Related Data Allergies Allergy/AdvReac Type Severity Reaction Status Date / Time No Known Allergies Allergy Verified 10/18/25 20:21 Review of Systems Review of Systems: Yes Unobtainable due to mental status PMFSH Social History Social History Smoked in Last 30 Days: No Use of substances other than those prescribed or required for medical reasons: No Advance Directives: No Advance Directives Information Provided: No Do you have a plan to hurt others: No Plan Physical Exam ED Exam Exam: GENERAL: Ill-Appearing, GCS 12, follows commands, responds to voice, slightly slurred speech. SKIN: Normal skin color for ethnicity, warm, dry, excoriated rash on the left scalp in the V1 distribution, areas of the rash are scabbed over with some honey-crusted discharge consistent with shingles and overlying impetigo. HEENT:? Normocephalic, atraumatic, no stridor, dry mucous membranes, dentition intact, EOMI. NECK: Soft, supple, full ROM, midline structures nontender, no step-offs, no deformities, no lymphadenopathy. CHEST: Heart regular tachycardia, no murmurs, symmetric chest rise and fall. PULMONARY: Clear to auscultation bilaterally, diminished at the bases, no labored breathing, no wheezes/rhales/rhonchi. ABDOMINAL: Soft, nondistended, nontender, positive bowel sounds in all quadrants. : Deferred. MUSCULOSKELETAL: Normal tone, full range of motion, no deformities, no peripheral edema. NEURO: GCS 12, moves upper limbs equally, bilateral leg weakness is baseline.? PSYCHIATRIC: Flat affect, fluid speech, good eye contact and appropriate demeanor. Vital Signs: Vital Signs - 24 hr 10/18/25 20:20 10/18/25 20:55 10/18/25 21:34 Temperature 100.0 F 100.4 F 100.6 F H Pulse Rate 107 H 98 99 Respiratory Rate 18 22 H 26 H Blood Pressure 111/81 117/87 109/75 Pulse Oximetry 94 93 92 Oxygen Delivery Method Room Air Room Air Nasal Cannula Oxygen Flow Rate 2 10/18/25 22:02 10/18/25 22:22 10/18/25 22:25 Temperature 100.8 F H 99.9 F 99.9 F Pulse Rate 92 89 Respiratory Rate 19 22 H Blood Pressure 103/78 109/73 Pulse Oximetry 95 96 Oxygen Delivery Method Nasal Cannula Nasal Cannula Oxygen Flow Rate 2 2 BMI result Body Mass Index 27.9 Medications Administered Generic Name Dose Route Start Last Admin Trade Name Freq PRN Reason Stop Dose Admin Vancomycin HCl 2,000 mg in 500 mls @ 250 mls/hr 10/18/25 21:43 10/18/25 22:25 Vancomycin/Ns IV 10/18/25 23:42 250 mls/hr ONCE ONE Administration Sodium Chloride 2,427 mls @ 2,427 mls/hr 10/18/25 21:44 10/18/25 21:55 Ns 30 ml/kg infuse over 1 hr (2427 ml) 10/18/25 22:43 2,427 mls/hr IV Administration .Q1H STA Discontinued Medications Generic Name Dose Route Start Last Admin Trade Name Freq PRN Reason Stop Dose Admin Cefepime HCl 2 gm in 50 mls @ 100 mls/hr 10/18/25 21:43 10/18/25 22:24 Maxipime IV 10/18/25 22:12 Infused ONCE ONE Infusion Acetaminophen 1,000 mg in 100 mls @ 400 mls/hr 10/18/25 21:51 10/18/25 22:17 Ofirmev IV 10/18/25 22:05 Infused ONCE ONE Infusion Medical Decision Making Medical Decision Making [facility] Narrative: Patient presents today with a chief complaint of altered mental status. Differential diagnosis for AMS is incredibly broad and includes infection, intracranial process such as hemorrhage, stroke or mass, electrolyte abnormality, hypercarbia, hypoxia, toxic encephalopathy, among many others. Broad-based workup was initiated to further evaluate the etiology of patient's symptoms based on the above exam and history. 9:57 PM 10/18/2025 (Dr. Ally Santiago, D.O.) patient flagging for sepsis with an elevated lactic acid level of 2.9, temperature of 100.6? and heart rate in the 100s. Initiated sepsis protocol with 30 cc/kg fluid bolus, broad spectrum antibiotics including cefepime and vancomycin. He is currently on doxycycline for reported scalp cellulitis however, the rash appears to look more like zoster infection with overlying impetigo. We will add on mupirocin ointment and try to contact the [facility] to see how long this rash has been there. His blood pressure remains relatively normal. Suspect his source is urine. Chest x-ray pending due to slightly low oxygen levels in the setting of sepsis there is potential for pneumonia. Also added on flu and COVID swabs as they are prominent in the community at this time. 10:31 PM 10/18/2025 (Dr. Ally Santiago, D.O.) flu and COVID swabs are negative. Chest x-ray does not show any obvious infiltrates though there is poor inspiratory effort. Plan for admission to hospitalist for further care and evaluation of urosepsis. Differential Diagnosis Differential Diagnoses: The differential diagnosis associated with the presentation includes (as above) Admission/Observation Consideration of admission/observation: Escalation of care including admission/observation considered Consult Healthcare Provider Management of the patient was discussed with: Hospitalist Lab Data [facility] Lab Attestation statement: I reviewed the patient's lab results. 10/18/25 20:59 10/18/25 20:59 Labs: Lab Results 10/18/25 10/18/25 10/18/25 Range/Units 20:40 20:59 21:03 WBC 10.2 (4.8-10.8) X10*3/uL RBC 5.45 (4.60-5.80) X10*6/uL Hgb 15.9 (14.0-18.0) g/dl Hct 48.6 (42.0-52.0) % MCV 89.2 (80.0-98.0) fL MCH 29.2 (27.0-33.0) pg MCHC 32.7 (31.0-36.0) g/dl RDW 14.0 (11.0-16.0) % Plt Count 234 (160-400) X10*3/uL MPV 9.7 (9.4-12.4) fL Immature Gran % (Auto) 0.5 H (0.0-0.4) % Neut % (Auto) 76.8 H (45-73) % Lymph % (Auto) 10.2 L (20-40) % [place] % (Auto) 10.9 (2-11) % Eos % (Auto) 1.1 (0-4) % Baso % (Auto) 0.5 (0-2) % Lymph # (Auto) 1.0 L (1.2-4.9) X10*3/uL [place] # (Auto) 1.1 (0.1-1.2) X10*3/uL Eos # (Auto) 0.1 (0.0-0.4) X10*3/uL Baso # (Auto) 0.1 (0.0-0.2) X10*3/uL Abs Immat Gran (auto) 0.05 H (0.00-0.03) X10*3/uL Absolute Neuts (auto) 7.9 (2.0-8.3) x10*3/uL Absolute Nucleated RBC 0.000 (0.0-0.012) X10*3/uL Nucleated RBC % (auto) 0.0 (0.0-0.2) /100WBC Sodium 144 (135-145) mmol/L Potassium 4.0 (3.3-5.1) mmol/L Chloride 108 (96-108) mmol/L Carbon Dioxide 26 (22-29) mmol/L Anion Gap 14 (12-20) BUN 33 H (9-16) mg/dL Creatinine 1.05 (0.5-1.4) mg/dL Estim Creat Clear Calc 70.4 Estimated GFR > 60 POC Glucose 91 (60-115) mg/dL Random Glucose 103 (60-115) mg/dL Lactic Acid 2.9 H* (0.5-2.0) mmol/L Calcium 9.1 (8.4-10.2) mg/dL Magnesium 1.8 (1.6-2.6) mg/dL Total Bilirubin 0.8 (0.0-1.0) mg/dL AST 22 (5-37) U/L ALT 27 (0-40) U/L Alkaline Phosphatase 63 (39-117) U/L Troponin I High Sens < 2.7 (<3.5-35.0) ng/L Total Protein 7.7 (6.5-8.0) g/dL Albumin 3.9 (3.5-5.0) g/dL Urine Color Dark Yellow Urine Appearance Turbid Urine pH 5.5 (5.0-9.0) Ur Specific [place] 1.025 (1.005-1.025) Urine Protein 300 (3+) H (Neg-Trace) mg/dL Urine Glucose (UA) Negative (Negative) mg/dL Urine Ketones Trace (Negative) mg/dL Urine Blood Large (3+) H (Negative) Urine Nitrite Positive H (Negative) Ur Leukocyte Esterase Moderate (2+) H (Negative) Urine RBC >20 H (0-2) /HPF Urine WBC 21-50 (0-5) /HPF Ur Squamous Epith Cells 11-20 (0-2) /HPF Calcium Oxalate Crystal Present Urine Bacteria 3+ (None Seen) Hyaline Casts >20 (0-2) /LPF Urine Opiates Screen Not Detected (Not Detect) Ur Buprenorphine Scrn Not Detected (Not Detect) ng/mL Ur Oxycodone Screen Not Detected (Not Detect) ng/mL Urine Methadone Screen Not Detected (Not Detect) ng/mL Urine Fentanyl Screen Not Detected (Not Detect) Ur Barbiturates Screen Not Detected (Not Detect) Ur Phencyclidine Scrn Not Detected (Not Detect) Ur Amphetamines Screen Not Detected (Not Detect) U Benzodiazepines Scrn Not Detected (Not Detect) Urine Cocaine Screen Not Detected (Not Detect) U Marijuana (THC) Screen Not Detected (Not Detect) Influenza Type A (PCR) NEGATIVE (Negative) Influenza Type B (PCR) NEGATIVE (Negative) RSV RNA Qual (PCR) NEGATIVE (Negative) SARS-CoV-2 RNA (RT-PCR) NEGATIVE (Negative) Independent Interpretation I performed an independent interpretation of an: EKG Interpretation: My independent interpretation of the ECG reveals normal sinus tachycardia with rate of 102, leftward axis, normal intervals, no ST elevations or depressions to suggest ischemic changes, baseline artifact, no previous for comparison My independent interpretation of the single-view chest x-ray shows poor inspiratory effort, slight obscuring of the left diaphragm, may be related to inspiratory effort versus left lower lobe infiltrate, no pleural effusions, pneumothorax. Radiology Impression Discussion of test interpretation with radiology: I have reviewed the radiologist's reading. Independent Historian Clinical information obtained from an independent historian. History obtained from or confirmed by: EMS External Record Review External record reviewed: Outpatient record Prescription Management I considered prescription management with: Antibiotic Chronic Conditions Patient?s care impacted by: Other (MS, dementia) Social Determinants Patient?s care significantly limited by Social Determinants of Health including: Other Social Determinant of Health Critical Care Time Critical Care Time Critical Care Time: Yes Total Critical Care Time: 40 Attestation: CRITICAL CARE TIME: 40 minutes of critical care time was spent in direct patient care at the bedside or in the immediate area with this patient. Critical care was necessary to treat or prevent imminent or life-threatening deterioration of the following conditions severe sepsis due to likely UTI source. This patient is high risk for decompensation and/or . This time was spent assessing and managing the patient, interpreting labs and imaging, coordinating care with other medical providers, gathering history from either the patient, their representatives, EMS or chart review, and discussing management with hospitalist. Discharge Plan Discharge Clinical Impression: Severe sepsis, Acute encephalopathy, Catheter-associated urinary tract infection, Impetigo Patient Disposition: Admitted As Inpatient Print Language: Uzbek
[2025-10-18] MEDS: cefEPime HCl/D5W 2 GM/50 ML PIGGYBACK IV (21:54)
[2025-10-18 21:58] LABS: Resp Syncy Virus RNA Qual PCR NEGATIVE (Negative); SARS COV2 PCR INHOUSE NEGATIVE (Negative)
[2025-10-18 22:15] LABS: UACC Culture Trigger YES
[2025-10-18] MEDS: vancomycin/NS 2,000 MG/500 ML PLAST..BAG 250 MG IV (22:25)
--- NOTE | 2025-10-18 22:59 | PC.NURSE ---
Hospitalist at bedside, patient noted to have some redness above IV site with vanco running, pt has no complaints of pain or burning at site, per hospitalist okay to continue vanco
--- NOTE | 2025-10-18 23:01 | PM.IMHP ---
History of Present Illness Date of Service: 10/18/25 Chief Complaint: ams 65M PMH multiple sclerosis complicated by neurogenic urinary retention status post suprapubic catheter, dementia, bed-bound, trigeminal neuralgia presented with altered mental status. Patient resides at [facility] and staff noted patient was minimally arousable, noted to have systolic blood pressure in the 70s and low-grade temperature. Of note patient had suprapubic catheter exchanged earlier with cloudy yellow urine. In ED noted to have positive UA, low-grade temperature, tachycardia, given 30 cc/kilos and vancomycin cefepime. Review of Systems Review of Systems: Yes all other systems are reviewed and are negative PMFSH Social History Smoked in Last 30 Days: No Use of substances other than those prescribed or required for medical reasons: No Advance Directives: No Advance Directives Information Provided: No Do you have a plan to hurt others: No Plan Meds Allergies Allergy/AdvReac Type Severity Reaction Status Date / Time No Known Allergies Allergy Verified 10/18/25 20:21 Active Medications: Current Medications Enoxaparin Sodium (Enoxaparin Sodium 40 Mg/0.4 Ml Syringe) 40 mg SUBCUT Q24H [facility] Vancomycin HCl (Vancomycin/Ns) 2,000 mg in 500 mls @ 250 mls/hr IV ONCE ONE Stop: 10/18/25 23:42 Last Admin: 10/18/25 22:25 Dose: 250 mls/hr Ceftriaxone Sodium 1 gm/ (Sodium Chloride) 50 mls @ 100 mls/hr IV Q24H [facility] Vancomycin HCl 1,000 mg/ (Sodium Chloride) 270 mls @ 270 mls/hr IV Q12H [facility] Pharmacy Consult (Consult Rx Vancomycin Dosing) 1 each MISCELLANE DAILY PRN PRN Reason: Consult order Physical Exam Vital Signs and Narrative: Vital Signs: Last Vital Signs Temp 99.3 F 10/18/25 22:55 Pulse 95 10/18/25 22:55 Resp 22 H 10/18/25 22:55 BP 114/68 10/18/25 22:55 Pulse Ox 97 10/18/25 22:55 O2 Del Method Nasal Cannula 10/18/25 22:55 O2 Flow Rate 2 10/18/25 22:55 BMI result Body Mass Index 27.9 Alert oriented to person and place not time, poor insight, bedbound, erythematous plaques on scalp, lungs clear, abdomen soft nontender, suprapubic in place Results Labs 10/18/25 20:59 10/18/25 20:59 Labs: Laboratory Results - last 24 hr 10/18/25 10/18/25 10/18/25 20:40 20:59 21:03 MCV 89.2 MCH 29.2 MCHC 32.7 RDW 14.0 Plt Count 234 MPV 9.7 Immature Gran % (Auto) 0.5 H Neut % (Auto) 76.8 H Lymph % (Auto) 10.2 L [place] % (Auto) 10.9 Eos % (Auto) 1.1 Baso % (Auto) 0.5 Lymph # (Auto) 1.0 L [place] # (Auto) 1.1 Eos # (Auto) 0.1 Baso # (Auto) 0.1 Abs Immat Gran (auto) 0.05 H Absolute Neuts (auto) 7.9 Absolute Nucleated RBC 0.000 Nucleated RBC % (auto) 0.0 Anion Gap 14 Estim Creat Clear Calc 70.4 Estimated GFR > 60 POC Glucose 91 Random Glucose 103 Lactic Acid 2.9 H* Calcium 9.1 Magnesium 1.8 Total Bilirubin 0.8 AST 22 ALT 27 Alkaline Phosphatase 63 Troponin I High Sens < 2.7 Total Protein 7.7 Albumin 3.9 Urine Color Dark Yellow Urine Appearance Turbid Urine pH 5.5 Ur Specific [place] 1.025 Urine Protein 300 (3+) H Urine Glucose (UA) Negative Urine Ketones Trace Urine Blood Large (3+) H Urine Nitrite Positive H Ur Leukocyte Esterase Moderate (2+) H Urine RBC >20 H Urine WBC 21-50 Ur Squamous Epith Cells 11-20 Calcium Oxalate Crystal Present Urine Bacteria 3+ Hyaline Casts >20 Urine Opiates Screen Not Detected Ur Buprenorphine Scrn Not Detected Ur Oxycodone Screen Not Detected Urine Methadone Screen Not Detected Urine Fentanyl Screen Not Detected Ur Barbiturates Screen Not Detected Ur Phencyclidine Scrn Not Detected Ur Amphetamines Screen Not Detected U Benzodiazepines Scrn Not Detected Urine Cocaine Screen Not Detected U Marijuana (THC) Screen Not Detected Influenza Type A (PCR) NEGATIVE Influenza Type B (PCR) NEGATIVE RSV RNA Qual (PCR) NEGATIVE SARS-CoV-2 RNA (RT-PCR) NEGATIVE Assessment and Plan (1) Severe sepsis: Status: Acute Plan 65M PMH multiple sclerosis complicated by neurogenic urinary retention status post suprapubic catheter, dementia, bed-bound, trigeminal neuralgia presented with altered mental status Severe sepsis and acute metabolic encephalopathy due to urinary tract infection due to chronic suprapubic catheter due to neurogenic bladder from multiple sclerosis Vancomycin to cover g positives given recent instrumentation Ceftriaxone to cover g negatives Follow up cultures Trigeminal neuralgia Oxcarbazepine DVT prophylaxis with Lovenox DNR/DNI Given dseverity of sepsis and need to obtain cultures expected to require at least 2 midnights inpatient Quality Stroke Does the patient have a stroke diagnosis?: No VTE Prior VTE?: No VTE Risk Level:: Medical - moderate - high VTE Device Contraindication: Treatment Not Indicated VTE Drug Contraindication: N/A - Med Ordered
[2025-10-18 23:19] LABS: Reflex Lactate? Lactic Acid Added
[2025-10-19] VITALS (9 sets, daily range): BP systolic 100–140; BP diastolic 63–88; PULSE 77–100; RESP 16–22; TEMP 36.2–37.7; O2SAT 93–96
[2025-10-19 00:04] LABS: ~Lactic Acid-LAB USE ONLY 2.2 mmol/L (0.5-2.0)
[2025-10-19] MEDS: 0.9 % Sodium Chloride Flush 3 ML SYRINGE IVFLUSH ×4 (00:44→20:13)
[2025-10-19 01:47] LABS: Reflex Lactate? 2 Y
[2025-10-19 02:14] LABS: Hematocrit 38.5 % (42.0-52.0); Hemoglobin 12.4 g/dl (14.0-18.0); Mean Corpuscular HGB Conc 32.2 g/dl (31.0-36.0); Mean Corpuscular Hemoglobin 28.8 pg (27.0-33.0); Mean Corpuscular Volume 89.3 fL (80.0-98.0); NRBC Abs Auto 0.000 X10*3/uL (0.0-0.012); NRBC Pct Auto 0.0 /100WBC (0.0-0.2); Platelet Count 166 X10*3/uL (160-400); Red Blood Count 4.31 X10*6/uL (4.60-5.80); White Blood Count 7.5 X10*3/uL (4.8-10.8)
--- OUTSIDE RECORDS SUMMARY | 2025-10-19 02:33 | XMS_ITS | Clinical Summary ---
Author Organization [facility] Prior to 04/10/[address] [place] [address] Care Team Providers Care Administrative Services Specialist Name Role Phone Kristine Resendez MD Primary Care Provider [phone] Allergies No known active allergies Medications Medication [...] age to complete this topic Care Teams Administrative Services Specialist Relationship Specialty Start Date End Date Kristine Resendez MD [address] [address] PCP - General Cardiology Consultant 11/07/20
--- OUTSIDE RECORDS SUMMARY | 2025-10-19 02:33 | XMS_ITS | Encounter Summary ---
Author Organization [facility] Address [address] [place] [address] Care Team Providers Care Laundry Tub Maker Name Role Phone Kristine Resendez MD Primary Care Provider [phone] Encounter Details Date Type Department Care Team (Late Contact Info) Description 07/14/2025 Lab Requisition [facility] - Main Lab [address] [facility] [place] [address] Martir Valencia MD [address] [place] [address] Essential (primary) hypertension Social History Tobacco Use [...] Description 12/20/2025 4:00 PM EST Office Visit [facility] [address] [place] [id number] Rena Palumbo MD [address] [place] [address] documented as of this encounter Procedures Procedure Name Priority Date/Time Associated Diagnosis Comments COMPLETE BLOOD COUNT Routine 07/14/2025 6:32 AM EDT Essential (primary) hypertension BASIC METABOLIC PANEL Routine 07/14/2025 6:32 AM EDT Essential (primary) hypertension documented in this encounter Results * (ABNORMAL) Basic metabolic panel (07/14/2025 6:32 AM EDT) Sodium 142 133 - 145 mmol/L LAB CHEMISTRY METHOD 07/14/2025 12:35 PM [facility] Potassium 4.1 3.5 - 5.5 mmol/L LAB CHEMISTRY METHOD 07/14/2025 12:35 PM [facility] Chloride 109 96 - 110 mmol/L LAB CHEMISTRY METHOD 07/14/2025 12:35 PM [facility] CO2 26 21 - 32 mmol/L LAB CHEMISTRY METHOD 07/14/2025 12:35 PM [facility] Anion Gap 7 3 - 11 LAB CHEMISTRY METHOD 07/14/2025 12:35 PM [facility] Glucose 81 70 - 100 mg/dL LAB CHEMISTRY METHOD 07/14/2025 12:35 PM [facility] BUN 29(H) 5 - 25 mg/dL LAB CHEMISTRY METHOD 07/14/2025 12:35 PM [facility] Creatinine 0.81 0.70 - 1.30 mg/dL LAB CHEMISTRY METHOD 07/14/2025 12:35 PM [facility] eGFR 97 >=60 mL/min/1. 73m2 LAB CHEMISTRY METHOD 07/14/2025 12:35 PM [facility] Comment:Calculation based on the Chronic Kidney Disease Epidemiology Collaboration (CKD-EPI) equation refit without adjustment for race. BUN/Creatinine Ratio 35.8 LAB CHEMISTRY METHOD 07/14/2025 12:35 PM [facility] Calcium 8.9 8.5 - 10.5 mg/dL LAB CHEMISTRY METHOD 07/14/2025 12:35 PM [facility] Blood Venous blood specimen / Unknown Venipuncture / Unknown 07/14/2025 6:32 AM EDT 07/14/2025 10:40 AM EDT Martir Valencia MD LAB BLOOD ORDERABLES Final Result [facility] [address] [place] [address], [place] [phone] * Complete blood count (07/14/2025 6:32 AM EDT) WBC 5.8 4.8 - 10.8 K/mcL LAB HEMETOLOGY METHOD 07/14/2025 11:06 AM EDT [facility] RBC 5.30 4.50 - 5.50 M/mcL LAB HEMETOLOGY METHOD 07/14/2025 11:06 AM [facility] Hemoglobin 15.2 13.5 - 17.5 g/dL LAB HEMETOLOGY METHOD 07/14/2025 11:06 AM [facility] Hematocrit 46.1 42.0 - 54.0 % LAB HEMETOLOGY METHOD 07/14/2025 11:06 AM [facility] MCV 87.3 79.0 - 98.0 FL LAB HEMETOLOGY METHOD 07/14/2025 11:06 AM [facility] MCH 28.8 27.0 - 32.0 pcg LAB HEMETOLOGY METHOD 07/14/2025 11:06 AM [facility] MCHC 33.0 32.0 - 37.0 g/dL LAB HEMETOLOGY METHOD 07/14/2025 11:06 AM [facility] RDW 12.7 11.0 - 15.0 % LAB HEMETOLOGY METHOD 07/14/2025 11:06 AM [facility] Platelets 252 130 - 400 K/mcL LAB HEMETOLOGY METHOD 07/14/2025 11:06 AM [facility] MPV 10.2 7.0 - 11.0 FL LAB HEMETOLOGY METHOD 07/14/2025 11:06 AM EDT [facility] NRBC 0.0 <1.0 % LAB HEMETOLOGY METHOD 07/14/2025 11:06 AM EDT [facility] NRBC Absolute 0.00 <0.10 K/mcL LAB HEMETOLOGY METHOD 07/14/2025 11:06 AM EDT [facility] Blood Venous blood specimen / Unknown Venipuncture / Unknown 07/14/2025 6:32 AM EDT 07/14/2025 10:40 AM EDT us Martir Valencia MD LAB BLOOD ORDERABLES Final Result [facility] [address] [place] [address], documented in this encounter Visit Diagnoses Diagnosis Essential (primary) hypertension Unspecified essential hypertension documented in this encounter Care Teams Laundry Tub Maker Relationship Specialty Start Date End Date Kristine Resendez MD [address] [place] [address] PCP - General Belt Loop Cutter 11/07/20 documented as of this encounter
--- OUTSIDE RECORDS SUMMARY | 2025-10-19 02:33 | XMS_ITS | Encounter Summary ---
Author Organization [facility] Address [address] [place] [address] Care Team Providers Care Propeller Tester Name Role Phone Kristine Resendez MD Primary Care Provider [phone] Encounter Details Date Type Department Care Team (Late Contact Info) Description 07/29/2025 Lab Requisition [facility] - Main Lab [address] [facility] [place] [address] Martir Valencia MD [address] [place] [id number] Adult failure to thrive; Multiple sclerosis (CMS/HCC [...] Description 12/20/2025 4:00 PM EST Office Visit [facility] [address] [facility] [address] [place] [address] Rena Palumbo MD [address] [place], [place] [id number] documented as of this encounter Procedures Procedure [...] mmol/L LAB CHEMISTRY METHOD 07/29/2025 11:18 AM [facility] Potassium 3.8 3.5 - 5.5 mmol/L LAB CHEMISTRY METHOD 07/29/2025 11:18 AM [facility] Chloride 108 96 - 110 mmol/L LAB CHEMISTRY METHOD 07/29/2025 11:18 AM [facility] CO2 25 21 - 32 mmol/L LAB CHEMISTRY METHOD 07/29/2025 11:18 AM [facility] Anion Gap 10 3 - 11 LAB CHEMISTRY METHOD 07/29/2025 11:18 AM [facility] Glucose 92 70 - 100 mg/dL LAB CHEMISTRY METHOD 07/29/2025 11:18 AM [facility] BUN 33(H) 5 - 25 mg/dL LAB CHEMISTRY METHOD 07/29/2025 11:18 AM [facility] Creatinine 0.82 0.70 - 1.30 mg/dL LAB CHEMISTRY METHOD 07/29/2025 11:18 AM [facility] eGFR 97 >=60 mL/min/1. 73m2 LAB CHEMISTRY METHOD 07/29/2025 11:18 AM [facility] Comment:Calculation based on the Chronic Kidney Disease Epidemiology Collaboration (CKD-EPI) equation refit without adjustment for race. BUN/Creatinine Ratio 40.2 LAB CHEMISTRY METHOD 07/29/2025 11:18 AM [facility] Calcium 8.9 8.5 - 10.5 mg/dL LAB CHEMISTRY METHOD 07/29/2025 11:18 AM [facility] Blood Venous blood specimen / Unknown Venipuncture / Unknown 07/29/2025 7:35 AM EDT 07/29/2025 9:42 AM EDT Martir Valencia MD LAB BLOOD ORDERABLES Final Result [facility] [address] [place] [address], * Complete blood count (07/29/2025 7:35 AM EDT) WBC 4.9 4.8 - 10.8 K/mcL LAB HEMETOLOGY METHOD 07/29/2025 12:18 PM EDT [facility] RBC 5.30 4.50 - 5.50 M/mcL LAB HEMETOLOGY METHOD 07/29/2025 12:18 PM EDT [facility] Hemoglobin 14.9 13.5 - 17.5 g/dL LAB HEMETOLOGY METHOD 07/29/2025 12:18 PM EDT [facility] Hematocrit 45.6 42.0 - 54.0 % LAB HEMETOLOGY METHOD 07/29/2025 12:18 PM EDT [facility] MCV 86.9 79.0 - 98.0 FL LAB HEMETOLOGY METHOD 07/29/2025 12:18 PM EDT [facility] MCH 28.4 27.0 - 32.0 pcg LAB HEMETOLOGY METHOD 07/29/2025 12:18 PM EDT [facility] MCHC 32.7 32.0 - 37.0 g/dL LAB HEMETOLOGY METHOD 07/29/2025 12:18 PM EDT [facility] RDW 12.9 11.0 - 15.0 % LAB HEMETOLOGY METHOD 07/29/2025 12:18 PM EDT [facility] Platelets 187 130 - 400 K/mcL LAB HEMETOLOGY METHOD 07/29/2025 12:18 PM EDT [facility] MPV 10.3 7.0 - 11.0 FL LAB HEMETOLOGY METHOD 07/29/2025 12:18 PM EDT [facility] NRBC 0.0 <1.0 % LAB HEMETOLOGY METHOD 07/29/2025 12:18 PM EDT [facility] NRBC Absolute 0.00 <0.10 K/mcL LAB HEMETOLOGY METHOD 07/29/2025 12:18 PM EDT [facility] Blood Venous blood specimen / Unknown Venipuncture / Unknown 07/29/2025 7:35 AM EDT 07/29/2025 9:42 AM EDT us Martir Valencia MD LAB BLOOD ORDERABLES Final Result [facility] [address] [place] [address], documented in this encounter Visit Diagnoses Diagnosis Adult failure to thrive Multiple sclerosis documented in this encounter Care Teams Propeller Tester Relationship Specialty Start Date End Date Kristine Resendez MD [address] [place] [address] PCP - General Furrier Apprentice 11/07/20 documented as of this encounter
--- OUTSIDE RECORDS SUMMARY | 2025-10-19 02:33 | XMS_ITS | Encounter Summary ---
Author Organization [facility] Address [address] [place] [address] Care Team Providers Care Boat Laborer Name Role Phone Kristine Resendez MD Primary Care Provider Encounter Details Date Type Department Care Team (Late Contact Info) Description 07/05/2025 Lab Requisition [facility] - Main Lab [address] [facility] [place] [address] Martir Valencia MD [address] [place] [address] Adult failure to thrive; Pure hyperglyceridemia; Trigeminal [...] Description 12/20/2025 4:00 PM EST Office Visit [facility] 175 [facility] [address] [place] [address] Rena Palumbo MD [address] [place] [address] documented as of this encounter Procedures Procedure [...] CBC auto differential (07/05/2025 8:50 AM EDT) [facility] WBC 7.9 4.8 - 10.8 K/mcL LAB HEMETOLOGY METHOD [facility] RBC 5.80(H) 4.50 - 5.50 M/mcL LAB HEMETOLOGY METHOD 07/05/2025 1:08 PM [facility] Hemoglobin 16.4 13.5 - 17.5 g/dL LAB HEMETOLOGY METHOD 07/05/2025 1:08 PM [facility] Hematocrit 48.9 42.0 - 54.0 % LAB HEMETOLOGY METHOD 07/05/2025 1:08 PM [facility] MCV 84.9 79.0 - 98.0 FL LAB HEMETOLOGY METHOD 07/05/2025 1:08 PM [facility] MCH 28.5 27.0 - 32.0 pcg LAB HEMETOLOGY METHOD 07/05/2025 1:08 PM [facility] MCHC 33.5 32.0 - 37.0 g/dL LAB HEMETOLOGY METHOD 07/05/2025 1:08 PM [facility] RDW 12.6 11.0 - 15.0 % LAB HEMETOLOGY METHOD 07/05/2025 1:08 PM [facility] Platelets 311 130 - 400 K/mcL LAB HEMETOLOGY METHOD 07/05/2025 1:08 PM [facility] MPV 10.4 7.0 - 11.0 FL LAB HEMETOLOGY METHOD 07/05/2025 1:08 PM [facility] NRBC 0.0 <1.0 % LAB HEMETOLOGY METHOD 07/05/2025 1:08 PM [facility] NRBC Absolute 0.00 <0.10 K/mcL LAB HEMETOLOGY METHOD 07/05/2025 1:08 PM [facility] Neutrophils Relative 76.9 % LAB HEMETOLOGY METHOD 07/05/2025 1:08 PM [facility] Lymphocytes Relative 10.6 % LAB HEMETOLOGY METHOD 07/05/2025 1:08 PM [facility] Monocytes Relative 9.3 % LAB HEMETOLOGY METHOD 07/05/2025 1:08 PM [facility] Eosinophils Relative 1.6 % LAB HEMETOLOGY METHOD 07/05/2025 1:08 PM [facility] Basophils Relative 1.1 % LAB HEMETOLOGY METHOD 07/05/2025 1:08 PM [facility] Immature Granulocytes Relative 0.5 % LAB HEMETOLOGY METHOD 07/05/2025 1:08 PM [facility] Neutrophils Absolute 6.10 1.50 - 7.00 K/mcL LAB HEMETOLOGY METHOD 07/05/2025 1:08 PM [facility] Lymphocytes Absolute 0.84(L) 1.00 - 5.00 K/mcL LAB HEMETOLOGY METHOD 07/05/2025 1:08 PM [facility] Monocytes Absolute 0.74 0.20 - 1.00 K/mcL LAB HEMETOLOGY METHOD 07/05/2025 1:08 PM [facility] Eosinophils Absolute 0.13 0.00 - [...] Result [facility] [address] [place] [address], * Comprehensive metabolic panel (07/05/2025 8:50 AM EDT) Sodium 137 133 - 145 mmol/L LAB CHEMISTRY METHOD 07/05/2025 1:27 PM [facility] Potassium 4.3 3.5 - 5.5 mmol/L LAB CHEMISTRY METHOD 07/05/2025 1:27 PM [facility] Chloride 105 96 - 110 mmol/L LAB CHEMISTRY METHOD 07/05/2025 1:27 PM [facility] CO2 24 21 - 32 mmol/L LAB CHEMISTRY METHOD 07/05/2025 1:27 PM [facility] Anion Gap 8 3 - 11 LAB CHEMISTRY METHOD 07/05/2025 1:27 PM [facility] Glucose 87 70 - 100 mg/dL LAB CHEMISTRY METHOD 07/05/2025 1:27 PM [facility] BUN 22 5 - 25 mg/dL LAB CHEMISTRY METHOD 07/05/2025 1:27 PM [facility] Creatinine 0.80 0.70 - 1.30 mg/dL LAB CHEMISTRY METHOD 07/05/2025 1:27 PM [facility] eGFR 98 >=60 mL/min/1. 73m2 LAB CHEMISTRY METHOD 07/05/2025 1:27 PM [facility] Comment:Calculation based on the Chronic Kidney Disease Epidemiology Collaboration (CKD-EPI) equation refit without adjustment for race. BUN/Creatinine Ratio 27.5 LAB CHEMISTRY METHOD 07/05/2025 1:27 PM [facility] Calcium 9.1 8.5 - 10.5 mg/dL LAB CHEMISTRY METHOD 07/05/2025 1:27 PM [facility] AST (SGOT) 19 10 - 42 unit/L LAB CHEMISTRY METHOD 07/05/2025 1:27 PM [facility] ALT (SGPT) 29 10 - 60 unit/L LAB CHEMISTRY METHOD 07/05/2025 1:27 PM [facility] Alkaline Phosphatase 78 42 - 121 unit/L LAB CHEMISTRY METHOD 07/05/2025 1:27 PM [facility] Total Protein 7.2 6.0 - 8.0 g/dL LAB CHEMISTRY METHOD 07/05/2025 1:27 PM [facility] Albumin 3.4 3.2 - 5.0 g/dL LAB CHEMISTRY METHOD 07/05/2025 1:27 PM [facility] Total Bilirubin 0.6 0.0 - 1.4 mg/dL LAB CHEMISTRY METHOD 07/05/2025 1:27 PM [facility] Blood Venous blood specimen / Unknown Venipuncture / Unknown 07/05/2025 8:50 AM EDT 07/05/2025 11:34 AM EDT us Martir Valencia MD LAB BLOOD ORDERABLES Final Result [facility] [address] [place] [address], documented in this encounter Visit Diagnoses Diagnosis Adult failure to thrive Pure hyperglyceridemia Trigeminal neuralgia documented in this encounter Care Teams Boat Laborer Relationship Specialty Start Date End Date Kristine Resendez MD [address] [place] [address] PCP - General Boat Laborer 11/07/20 documented as of this encounter
--- OUTSIDE RECORDS SUMMARY | 2025-10-19 02:34 | XMS_ITS | Clinical Summary ---
Author Organization 175 [facility] Address [address] [place] [address] Phone Care Team Providers Care Furniture Assembly Supervisor Name Role Phone Kristine Resendez MD Primary Care Provider Allergies Active Allergy Reactions Criticality Noted Date [...] Department Care Team Description 07/29/2025 Lab Requisition [facility] - Main Lab [address] [facility] [place] [address] Martir Valencia MD Adult failure to thrive; Multiple sclerosis ([facility] V24, [facility] V28) from Last 3 Months Surgical History Surgery Date Site/Laterality Comments OTHER SURGICAL HISTORY PROCEDURE:super pubic Medical History Medical History Date Comments MS (multiple sclerosis) DX:MS (m ultiple sclerosis) ([facility]) Social History Tobacco Use Types Packs/Day Years Used Date Smoking Tobacco: Never Assessed Sex and Gender Information Value Date Recorded Sex Assigned at Not on file Legal Sex Male 10:24 PM EST Gender Identity Not on file Sexual Orientation Not on file Last Filed Vital Signs [...] Description 12/20/2025 4:00 PM EST Office Visit [facility] [address] [facility] [address] [place] [phone] Rena Palumbo MD [address] [place] [address] Health Maintenance Due Date Last Done Comments [...] Depression Screening 11/11/2024 COVID-19 Vaccine (1 - 2024-2 6 season) 2025 Influenza Vaccine (#1) 2025 08/13/2017 [...] EDT Adult failure to thrive Multiple sclerosis from Last 3 Months Results * Complete blood count (07/29/2025 7:35 AM EDT) WBC 4.9 4.8 - 10.8 K/mcL LAB HEMETOLOGY METHOD 07/29/2025 12:18 PM EDT [facility] RBC 5.30 4.50 - 5.50 M/mcL LAB HEMETOLOGY METHOD 07/29/2025 12:18 PM EDT [facility] Hemoglobin 14.9 13.5 - 17.5 g/dL LAB HEMETOLOGY METHOD 07/29/2025 12:18 PM EDT [facility] Hematocrit 45.6 42.0 - 54.0 % LAB HEMETOLOGY METHOD 07/29/2025 12:18 PM EDT [facility] MCV 86.9 79.0 - 98.0 FL LAB HEMETOLOGY METHOD 07/29/2025 12:18 PM EDT [facility] MCH 28.4 27.0 - 32.0 pcg LAB HEMETOLOGY METHOD 07/29/2025 12:18 PM EDT [facility] MCHC 32.7 32.0 - 37.0 g/dL LAB HEMETOLOGY METHOD 07/29/2025 12:18 PM EDT [facility] RDW 12.9 11.0 - 15.0 % LAB HEMETOLOGY METHOD 07/29/2025 12:18 PM EDT [facility] Platelets 187 130 - 400 K/mcL LAB HEMETOLOGY METHOD 07/29/2025 12:18 PM EDT [facility] MPV 10.3 7.0 - 11.0 FL LAB HEMETOLOGY METHOD 07/29/2025 12:18 PM EDT [facility] NRBC 0.0 <1.0 % LAB HEMETOLOGY METHOD 07/29/2025 12:18 PM EDT [facility] NRBC Absolute 0.00 <0.10 K/mcL LAB HEMETOLOGY METHOD 07/29/2025 12:18 PM EDT [facility] Blood Venous blood specimen / Unknown Venipuncture / Unknown 07/29/2025 7:35 AM EDT 07/29/2025 9:42 AM EDT us Martir Valencia MD LAB BLOOD ORDERABLES Final Result [facility] [address] [place] [address], * (ABNORMAL) Basic metabolic panel (07/29/2025 7:35 AM EDT) Sodium 143 133 - 145 mmol/L LAB CHEMISTRY METHOD 07/29/2025 11:18 AM [facility] Potassium 3.8 3.5 - 5.5 mmol/L LAB CHEMISTRY METHOD 07/29/2025 11:18 AM [facility] Chloride 108 96 - 110 mmol/L LAB CHEMISTRY METHOD 07/29/2025 11:18 AM [facility] CO2 25 21 - 32 mmol/L LAB CHEMISTRY METHOD 07/29/2025 11:18 AM [facility] Anion Gap 10 3 - 11 LAB CHEMISTRY METHOD 07/29/2025 11:18 AM [facility] Glucose 92 70 - 100 mg/dL LAB CHEMISTRY METHOD 07/29/2025 11:18 AM [facility] BUN 33(H) 5 - 25 mg/dL LAB CHEMISTRY METHOD 07/29/2025 11:18 AM [facility] Creatinine 0.82 0.70 - 1.30 mg/dL LAB CHEMISTRY METHOD 07/29/2025 11:18 AM [facility] eGFR 97 >=60 mL/min/1. 73m2 LAB CHEMISTRY METHOD 07/29/2025 11:18 AM [facility] Comment:Calculation based on the Chronic Kidney Disease Epidemiology Collaboration (CKD-EPI) equation refit without adjustment for race. BUN/Creatinine Ratio 40.2 LAB CHEMISTRY METHOD 07/29/2025 11:18 AM [facility] Calcium 8.9 8.5 - 10.5 mg/dL LAB CHEMISTRY METHOD 07/29/2025 11:18 AM [facility] Blood Venous blood specimen / Unknown Venipuncture / Unknown 07/29/2025 7:35 AM EDT 07/29/2025 9:42 AM EDT us Martir Valencia MD LAB BLOOD ORDERABLES Final Result [facility] [address] [place] [address], [place] [phone] from Last 3 Months Insurance MEDICARE [facility] Care Teams Furniture Assembly Supervisor Relationship Specialty Start Date End Date Kristine Resendez MD [address] [place] [address] PCP - General Labelling Machine Operator 11/07/20
--- OUTSIDE RECORDS SUMMARY | 2025-10-19 02:34 | XMS_ITS | Encounter Summary ---
Author Organization [facility] Address [address] [place] [address] Care Team Providers Care Coal Grader Name Role Phone Kristine Resendez MD Primary Care Provider [phone] Encounter Details Date Type Department Care Team (Late st Contact Info) Description 11/25/2024 Lab Requisition [facility] - Main Lab [address] [facility] [place] [phone] Melissa Morales PA [address] [place] [address] Gross hematuria Social History Tobacco Use Types [...] Description 12/20/2025 4:00 PM EST Office Visit [facility] 175 [facility] [address] [place] [phone] Rena Palumbo MD [address] [place] [address] documented as of this encounter Procedures Procedure [...] and pathological findings. 12/04/2024 5:22 PM EST [facility] at 1722 EST Clinical Information Gross hematuria R31.0 Urine Cytology/FISH (now) 12/04/2024 5:22 PM [facility] Gross Description A. Ileal Conduit, [id number]: Received is one ThinPrep slide for cytology screen and one ThinPrep slide for Uro[employer]ion FISH 12/04/2024 5:22 PM [facility] Disclaimer Unless otherwise specified, all tissue is 10% NB formalin fixed and paraffin embedded. Technical pathology services provided by [facility] at [id number], [place] [address] (CLIA #[id number]/Caro Faye MD, Facility Engineer) 12/04/2024 5:22 PM [facility] Tissue Ileal biopsy specimen / Unknown 11/18/2024 11/25/2024 11:50 AM EST Melissa RAMIREZ LAB PATHOLOGY ORDERABLES Joi l Result [facility] [address] [place] [address], documented in this encounter Visit Diagnoses Diagnosis Gross hematuria documented in this encounter Care Teams Coal Grader Relationship Specialty Start Date End Date Kristine Resendez MD [address] [place] [address] PCP - General Learning Solutions Specialist 11/07/20 documented as of this encounter
[2025-10-19 02:38] LABS: ~Lactic Acid-LAB USE ONLY 2.4 mmol/L (0.5-2.0)
--- NOTE | 2025-10-19 05:12 | HO.NURTONUR ---
Addendum entered by Katie Og RN 10/19/25 15:12: GROUND/REGULAR DIET, NECTAR THICK LIQUIDS. VSS remain stable. 2A roll in bed, stiff/hard to move. speech somewhat garbled/hard to understand which is his baseline. Original Note: 65 male biba from [facility], staff reporting hypotension and febrile, chronic suprapubic needed to be changed 10/18 due to occlussion. on arrival patient blood pressure was WNL, febrile 100.4 rectally. Labs remarkable lactic 2.9/2.2/2.4 UTI. Patient able to answer questions appropriately. 18 Left Hand 20 R AC. Meds given NS, Cefepime, Vanco, tylenol PMHx multiple sclerosis complicated by neurogenic urinary retention status post suprapubic catheter, dementia, bed-bound, trigeminal neuralgia
[2025-10-19 05:15] LABS: Anion Gap 10 (12-20); Blood Urea Nitrogen 25 mg/dL (9-16); Calcium 8.6 mg/dL (8.4-10.2); Carbon Dioxide 26 mmol/L (22-29); Chloride 114 mmol/L (96-108); Creatinine Clr Calc Pharmacy 101.3; Estimated Glomerular Filt Rate > 60; Potassium 3.7 mmol/L (3.3-5.1); Sodium 146 mmol/L (135-145)
--- NOTE | 2025-10-19 06:39 | PHA.PROG ---
Admission Date/Time: October 18, 2025 23:01 Indication: Other Weight in k.9 kg Adjusted body weight in Kg: [place] body weight in Kg: Obesity Dosing Indication % IBW: Serum Creatinine - Last 168 Hours 10/18/25 10/19/25 20:59 04:58 Creatinine 1.05 0.73 Estimated CrCl and GFR - Last 168 Hours 10/18/25 10/19/25 20:59 04:58 Estim Creat Clear Calc 70.4 101.3 Estimated GFR > 60 > 60 Vancomycin Loading Dose: 2000 mg Current Vancomycin Dosing Regimen: 1250 mg Q12H Vancomycin Monitoring using AUC goal of 400 - 600 range with trough as surrogate marker: Predicted AUC 577 and trough 17.9 Date and Time for next Vancomycin Level to be drawn: 10/20 @0800 Pharmacist Comments on Vancomycin Plan: Vancomycin dosing will take advantage of [employer] as a clinical decision support tool that uses Bayesian modeling to calculate individual patient's pharmacokinetic parameters and forecast the patient's drug concentration time course with the target goal AUC 24 range of 400 - 600 mg/L/hr.
--- NOTE | 2025-10-19 09:17 | PHA.MEDREC ---
Addendum entered by Olga Liu RPh 10/19/25 09:49: Reviewed by [facility]. Pt to stop ammonium lactate daily on 10/20 and doxycycline on 10/21. Original Note: Pharmacy Consult ? Medication Reconciliation Pharmacy has completed the medication reconciliation. Utilized list from [facility].
[2025-10-19] MEDS: buPROPion HCl XL 150 MG TAB.ER.24H PO (13:23)
--- NOTE | 2025-10-19 13:28 | PC.NURSE ---
Patient repositioned in bed, extra pillows given. denies pain at this time
[2025-10-19] MEDS: Lactated Ringers 1,000 ML 100 ML IVCONT (14:22)
--- NOTE | 2025-10-19 18:26 | P.PNIM_ITS ---
Subjective Subjective Date of Service: 10/19/25 Interval History: Patient appears clinically sick We will continue IV antibiotics Review of Systems Review of Systems: Yes Unobtainable due to mental condition and Unobtainable due to mental status Physical Exam 2 Exam: Exam: General: AOx3, clinically appears frail and ill Resp: CTA bilaterally CVS: S1, S2, RRR Neuro:. Motor grossly intact bilaterally Psych: Appropriate affect Vital Signs: Vital Signs: Last Vital Signs Temp 98.8 F 10/19/25 16:00 Pulse 89 10/19/25 16:00 Resp 19 10/19/25 16:00 BP 140/88 H 10/19/25 16:00 Pulse Ox 96 10/19/25 16:00 O2 Del Method Room Air 10/19/25 16:00 O2 Flow Rate 2 10/19/25 06:14 BMI result Body Mass Index 27.9 Objective Data Active Medications Acetaminophen (Acetaminophen 325 Mg Tablet) 650 mg PO Q6H PRN PRN Reason: Pain, Mild 1-3,fever,headache Ascorbic Acid (Ascorbic Acid 500 Mg Tablet) 500 mg PO BID [facility] Bupropion HCl (Bupropion Hcl Xl 150 Mg Tab.Er.24h) 150 mg PO DAILY [facility] Last Admin: 10/19/25 13:23 Dose: 150 mg Documented By: KARLENE Calcium Carbonate (Calcium Carbonate 750 Mg Tab.Chew) 750 mg PO Q4H PRN PRN Reason: Heartburn Cyanocobalamin (Cyanocobalamin (Vitamin B-12) 1,000 Mcg Tablet) 1,000 mcg PO MOTH [facility] Docusate Sodium (Docusate Sodium 100 Mg Capsule) 100 mg PO DAILY [facility] Enoxaparin Sodium (Enoxaparin Sodium 40 Mg/0.4 Ml Syringe) 40 mg SUBCUT Q24H [facility] Last Admin: 10/19/25 11:45 Dose: 40 mg Documented By: KARLENE Gabapentin (Gabapentin 300 Mg Capsule) 300 mg PO TID [facility] Last Admin: 10/19/25 16:05 Dose: 300 mg Documented By: JULIAN Ceftriaxone Sodium 1 gm/ (Sodium Chloride) 50 mls @ 100 mls/hr IV Q24H [facility] Last Infusion: 10/19/25 12:18 Dose: Infused Documented By: KARLENE Vancomycin HCl 1,250 mg/ (Sodium Chloride) 250 mls @ 166.667 mls/hr IV Q12H [facility] Last Infusion: 10/19/25 16:05 Dose: Infused Documented By: JULIAN Lactated Ringer's (Lr) 1,000 mls @ 100 mls/hr IVCONT .Q10H [facility] Last Admin: 10/19/25 14:22 Dose: 100 mls/hr Documented By: KARLENE Lactic Acid (Ammonium Lactate 12 % Lotion 226 Gm Bottle) 1 appl TOPICAL BID [facility]; Protocol Lactulose (Lactulose 20 Gm/30 Ml Solution) 10 gm PO DAILY PRN PRN Reason: Constipation Loratadine (Loratadine 10 Mg Tablet) 10 mg PO DAILY [facility] Magnesium Hydroxide (Milk Of Magnesia 30 Ml Oral.Susp) 30 ml PO DAILY PRN PRN Reason: Constipation Melatonin (Melatonin 3 Mg Tablet) 6 mg PO BEDTIME PRN PRN Reason: Insomnia Oxcarbazepine (Oxcarbazepine 150 Mg Tablet) 150 mg PO BID [facility] Last Admin: 10/19/25 11:45 Dose: 150 mg Documented By: KARLENE Pharmacy Consult (Consult Rx Vancomycin Dosing) 1 each MISCELLANE DAILY PRN PRN Reason: Consult order Senna (Sennosides 8.6 Mg Tablet) 8.6 mg PO BEDTIME [facility] Sodium Chloride (0.9 % Sodium Chloride Flush 3 Ml Syringe) 3 ml IVFLUSH QSHIFT [facility] Last Admin: 10/19/25 17:25 Dose: 3 ml Documented By: BOB Labs 10/19/25 02:09 10/19/25 04:58 Labs: Laboratory Results - last 24 hr 10/18/25 10/18/25 10/18/25 20:40 20:59 21:03 MCV 89.2 MCH 29.2 MCHC 32.7 RDW 14.0 Plt Count 234 MPV 9.7 Immature Gran % (Auto) 0.5 H Neut % (Auto) 76.8 H Lymph % (Auto) 10.2 L [place] % (Auto) 10.9 Eos % (Auto) 1.1 Baso % (Auto) 0.5 Lymph # (Auto) 1.0 L [place] # (Auto) 1.1 Eos # (Auto) 0.1 Baso # (Auto) 0.1 Abs Immat Gran (auto) 0.05 H Absolute Neuts (auto) 7.9 Absolute Nucleated RBC 0.000 Nucleated RBC % (auto) 0.0 Anion Gap 14 Estim Creat Clear Calc 70.4 Estimated GFR > 60 POC Glucose 91 Random Glucose 103 Lactic Acid 2.9 H* Lactic Acid F/U @ 2Hr Lactic Acid F/U @ 4Hr Calcium 9.1 Magnesium 1.8 Total Bilirubin 0.8 AST 22 ALT 27 Alkaline Phosphatase 63 Troponin I High Sens < 2.7 Total Protein 7.7 Albumin 3.9 Urine Color Dark Yellow Urine Appearance Turbid Urine pH 5.5 Ur Specific Hendricks 1.025 Urine Protein 300 (3+) H Urine Glucose (UA) Negative Urine Ketones Trace Urine Blood Large (3+) H Urine Nitrite Positive H Ur Leukocyte Esterase Moderate (2+) H Urine RBC >20 H Urine WBC 21-50 Ur Squamous Epith Cells 11-20 Calcium Oxalate Crystal Present Urine Bacteria 3+ Hyaline Casts >20 Urine Opiates Screen Not Detected Ur Buprenorphine Scrn Not Detected Ur Oxycodone Screen Not Detected Urine Methadone Screen Not Detected Urine Fentanyl Screen Not Detected Ur Barbiturates Screen Not Detected Ur Phencyclidine Scrn Not Detected Ur Amphetamines Screen Not Detected U Benzodiazepines Scrn Not Detected Urine Cocaine Screen Not Detected U Marijuana (THC) Screen Not Detected Influenza Type A (PCR) NEGATIVE Influenza Type B (PCR) NEGATIVE RSV RNA Qual (PCR) NEGATIVE SARS-CoV-2 RNA (RT-PCR) NEGATIVE 10/18/25 10/19/25 10/19/25 23:41 02:09 04:58 MCV 89.3 MCH 28.8 MCHC 32.2 RDW 13.9 Plt Count 166 D MPV 9.4 Immature Gran % (Auto) Neut % (Auto) Lymph % (Auto) [place] % (Auto) Eos % (Auto) Baso % (Auto) Lymph # (Auto) [place] # (Auto) Eos # (Auto) Baso # (Auto) Abs Immat Gran (auto) Absolute Neuts (auto) Absolute Nucleated RBC 0.000 Nucleated RBC % (auto) 0.0 Anion Gap 10 L Estim Creat Clear Calc 101.3 Estimated GFR > 60 POC Glucose Random Glucose 100 Lactic Acid Lactic Acid F/U @ 2Hr 2.2 H* Lactic Acid F/U @ 4Hr 2.4 H* Calcium 8.6 Magnesium Total Bilirubin AST ALT Alkaline Phosphatase Troponin I High Sens Total Protein Albumin Urine Color Urine Appearance Urine pH Ur Specific Hendricks Urine Protein Urine Glucose (UA) Urine Ketones Urine Blood Urine Nitrite Ur Leukocyte Esterase Urine RBC Urine WBC Ur Squamous Epith Cells Calcium Oxalate Crystal Urine Bacteria Hyaline Casts Urine Opiates Screen Ur Buprenorphine Scrn Ur Oxycodone Screen Urine Methadone Screen Urine Fentanyl Screen Ur Barbiturates Screen Ur Phencyclidine Scrn Ur Amphetamines Screen U Benzodiazepines Scrn Urine Cocaine Screen U Marijuana (THC) Screen Influenza Type A (PCR) Influenza Type B (PCR) RSV RNA Qual (PCR) SARS-CoV-2 RNA (RT-PCR) Microbiology Microbiology Results: Microbiology 10/18/25 Unknown Urine Culture - Preliminary Urine clean catch - Clean Catch Midstream Culture too young to evaluate. Assessment and Plan (1) Severe sepsis: Status: Acute Assessment and Plan: 65M PMH multiple sclerosis complicated by neurogenic urinary retention status post suprapubic catheter, dementia, bed-bound, trigeminal neuralgia presented with altered mental status. #Severe sepsis and acute metabolic encephalopathy due to urinary tract infection due to chronic suprapubic catheter due to neurogenic bladder from multiple sclerosis #Suprapubic catheter was changed this admission 10/18/2025 in ED Patient met severe sepsis criteria POA with hypotension, source of infection, lethargy, altered mental status Continue IV antibiotics Follow up sepsis workup #Hypernatremia #Hypochloremia Likely secondary to prerenal poor oral intake in the setting of sepsis Received fluids per sepsis protocol LR at 100 cc an hour for maintenance Daily labs #Trigeminal neuralgia Continue Oxcarbazepine #Dementia #Bed-bound status Fall precautions DVT prophylaxis with Lovenox DNR/DNI This note is constructed using voice recognition software. While every effort has been made to ensure accuracy, coremaking machine operator errors may have been included. Quality Stroke Does the patient have a stroke diagnosis?: No VTE Prior VTE?: No VTE Risk Level:: Medical - moderate - high VTE Device Contraindication: Treatment Not Indicated VTE Drug Contraindication: N/A - Med Ordered
[2025-10-19] MEDS: Ammonium Lactate 12 % Lotion 226 GM BOTTLE 1 APPL TOPICAL (21:41)
[2025-10-20] VITALS (7 sets, daily range): BP systolic 105–148; BP diastolic 58–80; PULSE 84–93; RESP 16–20; TEMP 36.2–37; O2SAT 92–95
[2025-10-20] MEDS: Lactated Ringers 1,000 ML 100 ML IVCONT ×3 (01:46→21:43)
--- NOTE | 2025-10-20 07:35 | P.PNIM_ITS ---
Subjective Subjective Date of Service: 10/20/25 Interval History: Patient appears clinically sick We will continue IV antibiotics Review of Systems Review of Systems: Yes Unobtainable due to mental condition and Unobtainable due to mental status Physical Exam 2 Exam: Exam: General: AOx3, clinically appears frail and ill Resp: CTA bilaterally CVS: S1, S2, RRR Neuro:. Motor grossly intact bilaterally Psych: Appropriate affect Vital Signs: Vital Signs: Last Vital Signs Temp 97.2 F 10/20/25 06:00 Pulse 84 10/20/25 06:00 Resp 16 10/20/25 06:00 BP 134/79 10/20/25 06:00 Pulse Ox 93 10/20/25 06:00 O2 Del Method Nasal Cannula 10/20/25 06:00 O2 Flow Rate 2 10/20/25 06:00 BMI result Body Mass Index 27.9 Objective Data Active Medications Acetaminophen (Acetaminophen 325 Mg Tablet) 650 mg PO Q6H PRN PRN Reason: Pain, Mild 1-3,fever,headache Ascorbic Acid (Ascorbic Acid 500 Mg Tablet) 500 mg PO BID [facility] Last Admin: 10/19/25 20:13 Dose: 500 mg Documented By: NANCY Bupropion HCl (Bupropion Hcl Xl 150 Mg Tab.Er.24h) 150 mg PO DAILY [facility] Last Admin: 10/19/25 13:23 Dose: 150 mg Documented By: KARLENE Calcium Carbonate (Calcium Carbonate 750 Mg Tab.Chew) 750 mg PO Q4H PRN PRN Reason: Heartburn Cyanocobalamin (Cyanocobalamin (Vitamin B-12) 1,000 Mcg Tablet) 1,000 mcg PO MOTH [facility] Docusate Sodium (Docusate Sodium 100 Mg Capsule) 100 mg PO DAILY [facility] Enoxaparin Sodium (Enoxaparin Sodium 40 Mg/0.4 Ml Syringe) 40 mg SUBCUT Q24H [facility] Last Admin: 10/19/25 11:45 Dose: 40 mg Documented By: KARLENE Gabapentin (Gabapentin 300 Mg Capsule) 300 mg PO TID [facility] Last Admin: 10/19/25 20:13 Dose: 300 mg Documented By: NANCY Ceftriaxone Sodium 1 gm/ (Sodium Chloride) 50 mls @ 100 mls/hr IV Q24H [facility] Last Infusion: 10/19/25 12:18 Dose: Infused Documented By: KARLENE Vancomycin HCl 1,250 mg/ (Sodium Chloride) 250 mls @ 166.667 mls/hr IV Q12H [facility] Last Infusion: 10/19/25 23:16 Dose: Infused Documented By: NANCY Lactated Ringer's (Lr) 1,000 mls @ 100 mls/hr IVCONT .Q10H [facility] Last Admin: 10/20/25 01:46 Dose: 100 mls/hr Documented By: NANCY Lactic Acid (Ammonium Lactate 12 % Lotion 226 Gm Bottle) 1 appl TOPICAL BID [facility]; Protocol Last Admin: 10/19/25 21:41 Dose: 1 appl Documented By: NANCY Lactulose (Lactulose 20 Gm/30 Ml Solution) 10 gm PO DAILY PRN PRN Reason: Constipation Loratadine (Loratadine 10 Mg Tablet) 10 mg PO DAILY [facility] Magnesium Hydroxide (Milk Of Magnesia 30 Ml Oral.Susp) 30 ml PO DAILY PRN PRN Reason: Constipation Melatonin (Melatonin 3 Mg Tablet) 6 mg PO BEDTIME PRN PRN Reason: Insomnia Oxcarbazepine (Oxcarbazepine 150 Mg Tablet) 150 mg PO BID [facility] Last Admin: 10/19/25 20:13 Dose: 150 mg Documented By: NANCY Pharmacy Consult (Consult Rx Vancomycin Dosing) 1 each MISCELLANE DAILY PRN PRN Reason: Consult order Senna (Sennosides 8.6 Mg Tablet) 8.6 mg PO BEDTIME [facility] Last Admin: 10/19/25 20:13 Dose: 8.6 mg Documented By: NANCY Sodium Chloride (0.9 % Sodium Chloride Flush 3 Ml Syringe) 3 ml IVFLUSH QSHIFT [facility] Last Admin: 10/19/25 20:13 Dose: 3 ml Documented By: NANCY Labs 10/19/25 02:09 10/20/25 09:15 Microbiology Microbiology Results: Microbiology 10/18/25 20:58 Blood Culture - Preliminary Blood - Venous No growth after 24 hours. 10/18/25 20:59 Blood Culture - Preliminary Blood - Venous No growth after 24 hours. 10/18/25 Unknown Urine Culture - Preliminary Urine clean catch - Clean Catch Midstream Culture too young to evaluate. Assessment and Plan (1) Severe sepsis: Status: Acute Assessment and Plan: 65M PMH multiple sclerosis complicated by neurogenic urinary retention status post suprapubic catheter, dementia, bed-bound, trigeminal neuralgia presented with altered mental status. #Severe sepsis and acute metabolic encephalopathy due to urinary tract infection due to chronic suprapubic catheter due to neurogenic bladder from multiple sclerosis # preliminary C/S urine growing Gram-negative rods, C/S not resulted yet #Suprapubic catheter was changed this admission 10/18/2025 in ED Patient met severe sepsis criteria POA with hypotension, source of infection, lethargy, altered mental status We will switch IV antibiotics (ceftriaxone and vancomycin) to Augmentin Awaiting culture and sensitivity of the urine #Hypernatremia #Hypochloremia Likely secondary to prerenal poor oral intake in the setting of sepsis Received fluids per sepsis protocol , of maintenance fluids, we will encourage p.o. intake Daily labs #Trigeminal neuralgia Continue Oxcarbazepine #Dementia #Bed-bound status Fall precautions DVT prophylaxis with Lovenox DNR/DNI This note is constructed using voice recognition software. While every effort has been made to ensure accuracy, net repairer errors may have been included. Likely discharge tomorrow if remains hemodynamically stable Quality Stroke Does the patient have a stroke diagnosis?: No VTE Prior VTE?: No VTE Risk Level:: Medical - moderate - high VTE Device Contraindication: Treatment Not Indicated VTE Drug Contraindication: N/A - Med Ordered
[2025-10-20] MEDS: buPROPion HCl XL 150 MG TAB.ER.24H PO (08:53)
[2025-10-20] MEDS: 0.9 % Sodium Chloride Flush 3 ML SYRINGE IVFLUSH (08:54)
[2025-10-20] MEDS: Ammonium Lactate 12 % Lotion 226 GM BOTTLE 1 APPL TOPICAL ×2 (09:03→20:17)
[2025-10-20 09:54] LABS: Creatinine Clr Calc Pharmacy 132.1; Estimated Glomerular Filt Rate > 60
--- NOTE | 2025-10-20 10:03 | HE.PHANOTE ---
WILLIAN Changed dose to 1750mg Q12H per subtherapeutic trough and improved renal function. New predicted trough 16, AUC 585. Next trough to be pulled 10/21 @0900.
--- NOTE | 2025-10-20 10:04 | MHC.CM.PN ---
pt from [facility] where he will retuin by [facility] when dcd
--- NOTE | 2025-10-20 10:08 | MHC.CM.PN ---
ppts [place] [phone]
[2025-10-21 03:29] VITALS: BP 134/60; PULSE 92; RESP 20; TEMP 36.7; O2SAT 95
[2025-10-21] MEDS: Lactated Ringers 1,000 ML 100 ML IVCONT (05:12)
[2025-10-21 06:46] LABS: MANUAL DIFF FLAG NO
[2025-10-21 06:48] LABS: Hematocrit 36.1 % (42.0-52.0); Hemoglobin 12.2 g/dl (14.0-18.0); Imm Gran Abs Auto 0.02 X10*3/uL (0.00-0.03); Imm Gran Pct Auto 0.5 % (0.0-0.4); Lymphocytes Absolute Auto 0.8 X10*3/uL (1.2-4.9); Mean Corpuscular HGB Conc 33.8 g/dl (31.0-36.0); Mean Corpuscular Hemoglobin 29.2 pg (27.0-33.0); Mean Corpuscular Volume 86.4 fL (80.0-98.0); NRBC Abs Auto 0.000 X10*3/uL (0.0-0.012); NRBC Pct Auto 0.0 /100WBC (0.0-0.2); Platelet Count 177 X10*3/uL (160-400); Red Blood Count 4.18 X10*6/uL (4.60-5.80); White Blood Count 4.2 X10*3/uL (4.8-10.8)
--- NOTE | 2025-10-21 07:22 | HO.PM.IMPN ---
Subjective Subjective Date of Service: 10/21/25 Physical Exam Vital Signs: Vital Signs: Last Vital Signs Temp 98.1 F 10/21/25 03:29 Pulse 92 10/21/25 03:29 Resp 20 10/21/25 03:29 BP 134/60 10/21/25 03:29 Pulse Ox 95 10/21/25 03:29 O2 Del Method Room Air 10/21/25 03:29 O2 Flow Rate 2 10/20/25 06:00 BMI result Body Mass Index 27.9 Objective Data Active Medications Acetaminophen (Acetaminophen 325 Mg Tablet) 650 mg PO Q6H PRN PRN Reason: Pain, Mild 1-3,fever,headache Amoxicillin/Clavulanate Potassium (Amoxicillin/Potassium Clav 875 Mg Tablet) 875 mg PO Q12H [facility] Last Admin: 10/20/25 23:58 Dose: 875 mg Documented By: NANCY Ascorbic Acid (Ascorbic Acid 500 Mg Tablet) 500 mg PO BID [facility] Last Admin: 10/20/25 20:16 Dose: 500 mg Documented By: NANCY Bupropion HCl (Bupropion Hcl Xl 150 Mg Tab.Er.24h) 150 mg PO DAILY [facility] Last Admin: 10/20/25 08:53 Dose: 150 mg Documented By: JOSE ANGEL Calcium Carbonate (Calcium Carbonate 750 Mg Tab.Chew) 750 mg PO Q4H PRN PRN Reason: Heartburn Cyanocobalamin (Cyanocobalamin (Vitamin B-12) 1,000 Mcg Tablet) 1,000 mcg PO MOTH [facility] Docusate Sodium (Docusate Sodium 100 Mg Capsule) 100 mg PO DAILY [facility] Last Admin: 10/20/25 09:02 Dose: 100 mg Documented By: JOSE ANGEL Enoxaparin Sodium (Enoxaparin Sodium 40 Mg/0.4 Ml Syringe) 40 mg SUBCUT Q24H [facility] Last Admin: 10/20/25 09:02 Dose: 40 mg Documented By: JOSE ANGEL Gabapentin (Gabapentin 300 Mg Capsule) 300 mg PO TID [facility] Last Admin: 10/20/25 20:16 Dose: 300 mg Documented By: NANCY Lactated Ringer's (Lr) 1,000 mls @ 100 mls/hr IVCONT .Q10H [facility] Last Admin: 10/21/25 05:12 Dose: 100 mls/hr Documented By: NANCY Lactic Acid (Ammonium Lactate 12 % Lotion 226 Gm Bottle) 1 appl TOPICAL BID [facility]; Protocol Last Admin: 10/20/25 20:17 Dose: 1 appl Documented By: NANCY Lactulose (Lactulose 20 Gm/30 Ml Solution) 10 gm PO DAILY PRN PRN Reason: Constipation Loratadine (Loratadine 10 Mg Tablet) 10 mg PO DAILY [facility] Last Admin: 10/20/25 08:54 Dose: 10 mg Documented By: JOSE ANGEL Magnesium Hydroxide (Milk Of Magnesia 30 Ml Oral.Susp) 30 ml PO DAILY PRN PRN Reason: Constipation Melatonin (Melatonin 3 Mg Tablet) 6 mg PO BEDTIME PRN PRN Reason: Insomnia Oxcarbazepine (Oxcarbazepine 150 Mg Tablet) 150 mg PO BID [facility] Last Admin: 10/20/25 20:16 Dose: 150 mg Documented By: NANCY Senna (Sennosides 8.6 Mg Tablet) 8.6 mg PO BEDTIME [facility] Last Admin: 10/20/25 20:16 Dose: 8.6 mg Documented By: NANCY Sodium Chloride (0.9 % Sodium Chloride Flush 3 Ml Syringe) 3 ml IVFLUSH QSHIFT [facility] Last Admin: 10/21/25 07:06 Dose: Not Given Documented By: DARWIN Non-Admin Reason: IV Running Labs 10/21/25 05:58 10/20/25 09:15 Labs: Laboratory Results - last 24 hr 10/20/25 10/21/25 09:15 05:58 MCV 86.4 MCH 29.2 MCHC 33.8 RDW 13.3 Plt Count 177 MPV 9.8 Immature Gran % (Auto) 0.5 H Neut % (Auto) 63.8 Lymph % (Auto) 19.6 L Jay % (Auto) 9.8 Eos % (Auto) 5.3 H Baso % (Auto) 1.0 Lymph # (Auto) 0.8 L Jay # (Auto) 0.4 Eos # (Auto) 0.2 Baso # (Auto) 0.0 Abs Immat Gran (auto) 0.02 Absolute Neuts (auto) 2.7 Absolute Nucleated RBC 0.000 Nucleated RBC % (auto) 0.0 Estim Creat Clear Calc 132.1 Estimated GFR > 60 Vancomycin Trough 12.1 Microbiology Microbiology Results: Microbiology 10/18/25 20:58 Blood Culture - Preliminary Blood - Venous No growth after 48 hours. 10/18/25 20:59 Blood Culture - Preliminary Blood - Venous No growth after 48 hours. 10/18/25 Unknown Urine Culture - Preliminary Urine clean catch - Clean Catch Midstream Gram negative shilpa Quality Stroke Does the patient have a stroke diagnosis?: No VTE Prior VTE?: No VTE Risk Level:: Medical - moderate - high VTE Device Contraindication: Treatment Not Indicated VTE Drug Contraindication: N/A - Med Ordered
[2025-10-21 07:23] LABS: Alanine Aminotransferase 14 U/L (0-40); Albumin Level 3.1 g/dL (3.5-5.0); Alkaline Phosphatase 48 U/L (39-117); Anion Gap 11 (12-20); Aspartate Amino Transferase 22 U/L (5-37); Blood Urea Nitrogen 8 mg/dL (9-16); Calcium 8.7 mg/dL (8.4-10.2); Carbon Dioxide 28 mmol/L (22-29); Chloride 107 mmol/L (96-108); Creatinine Clr Calc Pharmacy 115.6; Estimated Glomerular Filt Rate > 60; Magnesium 1.8 mg/dL (1.6-2.6); Potassium 3.2 mmol/L (3.3-5.1); Sodium 143 mmol/L (135-145); Total Protein 6.3 g/dL (6.5-8.0)
[2025-10-21 08:00] VITALS: BP 144/93; PULSE 84; RESP 17; TEMP 36.6; O2SAT 92
[2025-10-21] MEDS: buPROPion HCl XL 150 MG TAB.ER.24H PO (08:38)
[2025-10-21] MEDS: Ammonium Lactate 12 % Lotion 226 GM BOTTLE 1 APPL TOPICAL (09:50)
--- NOTE | 2025-10-21 11:08 | P.DS_ITS ---
DS: Providers Provider Date of Service: 10/21/25 Date of admission: 10/18/25 23:01 Date of discharge: 10/21/25 Primary care physician: Kashif Everett MD DS: Diagnosis Discharge Diagnosis (1) Severe sepsis: Status: Acute DS: Summary Hospital Course Hospital Course: Chief Complaint: ams 65M PMH multiple sclerosis complicated by neurogenic urinary retention status post suprapubic catheter, dementia, bed-bound, trigeminal neuralgia presented with altered mental status. Patient resides at [facility] and staff noted patient was minimally arousable, noted to have systolic blood pressure in the 70s and low-grade temperature. Of note patient had suprapubic catheter exchanged earlier with cloudy yellow urine. In ED noted to have positive UA, low-grade temperature, tachycardia, given 30 cc/kilos and vancomycin cefepime. Hospital course: 65-year-old male with multiple sclerosis (complicated by neurogenic bladder and chronic suprapubic catheter), dementia, and bed-bound status, presented with altered mental status. He was found to have severe sepsis and acute metabolic encephalopathy secondary to a urinary tract infection, with preliminary urine cultures growing Gram-negative rods. The suprapubic catheter was changed on admission. Antibiotics were switched to Augmentin pending final culture results. He also developed hypernatremia and hypochloremia, likely due to poor oral intake in the setting of sepsis, managed with IV fluids and encouragement of oral intake. Trigeminal neuralgia is managed with oxcarbazepine. Fall precautions and DVT prophylaxis with Lovenox were maintained. For chronic medical conditions, home were continued. Patient to complete 5 more days of Augmentin to complete a total 7 day course of antibiotics ? Time spent discussing smoking cessation with patient: more than 10 minutes Status at Discharge Functional status at discharge: bed bound Overall status at discharge: patient is progressing back to baseline Time Attestation Discharge Coordination Time (in mins): 65 Quality: Safe Use of Opioids Does Pt have an Active Cancer Diagnosis on the Problem List?: No Quality: Stroke Does the patient have a stroke diagnosis?: No Physical Exam Exam: Exam: General: AOx3, clinically appears frail and ill Resp: CTA bilaterally CVS: S1, S2, RRR Neuro:. Motor grossly intact bilaterally : SPC Psych: Appropriate affect Vital Signs: Vital Signs: Last Vital Signs Temp 97.8 F 10/21/25 08:00 Pulse 84 10/21/25 08:00 Resp 17 10/21/25 08:00 BP 144/93 H 10/21/25 08:00 Pulse Ox 92 10/21/25 08:00 O2 Del Method Room Air 10/21/25 08:00 O2 Flow Rate 2 10/20/25 06:00 BMI result Body Mass Index 27.9 DS: Data Data Completed and Pending Labs on day of discharge: Laboratory Results - last 24 hr 10/21/25 05:58 WBC 4.2 L RBC 4.18 L Hgb 12.2 L Hct 36.1 L MCV 86.4 MCH 29.2 MCHC 33.8 RDW 13.3 Plt Count 177 MPV 9.8 Immature Gran % (Auto) 0.5 H Neut % (Auto) 63.8 Lymph % (Auto) 19.6 L [place] % (Auto) 9.8 Eos % (Auto) 5.3 H Baso % (Auto) 1.0 Lymph # (Auto) 0.8 L [place] # (Auto) 0.4 Eos # (Auto) 0.2 Baso # (Auto) 0.0 Abs Immat Gran (auto) 0.02 Absolute Neuts (auto) 2.7 Absolute Nucleated RBC 0.000 Nucleated RBC % (auto) 0.0 Sodium 143 Potassium 3.2 L Chloride 107 Carbon Dioxide 28 Anion Gap 11 L BUN 8 L Creatinine 0.64 Estim Creat Clear Calc 115.6 Estimated GFR > 60 Random Glucose 94 Calcium 8.7 Magnesium 1.8 Total Bilirubin 0.6 AST 22 ALT 14 Alkaline Phosphatase 48 Total Protein 6.3 L Albumin 3.1 L Preliminary micro results at discharge 10/18/25 20:58 Blood Culture - Preliminary Blood - Venous No growth after 48 hours. 10/18/25 20:59 Blood Culture - Preliminary Blood - Venous No growth after 48 hours. Discharge Plan Discharge Anticipated Discharge Date/Time: 10/21/25 11:13 Patient Disposition: Home, Self-Care Discharge Diagnosis: Severe sepsis with altered mental status secondary to Gram- negative UTI Referrals: Swapna Germain MD [Physician, Urology] - 1 Week Kashif Everett MD [Primary Care Provider, Internal Medicine] - 1 Week Discharge Medications: New amoxicillin-pot clavulanate 875-125 mg Tablet 1 tab PO Q12H 5 Days Qty: 10 0RF Continued oxcarbazepine 150 mg Tablet 150 mg PO BID sennosides [senna] 8.6 mg Tablet 8.6 mg PO BEDTIME cyanocobalamin (vitamin B-12) [Vitamin B-12] 1,000 mcg Tablet 1,000 mcg PO MOTH methenamine hippurate 1 gram Tablet 1 g PO BID ascorbic acid (vitamin C) [Vitamin C] 500 mg Tablet 500 mg PO BID gabapentin 300 mg Capsule 300 mg PO TID docusate sodium 100 mg Tablet 100 mg PO DAILY loratadine 10 mg Tablet 10 mg PO DAILY bupropion HCl 150 mg tablet extended release 24 hr 150 mg PO DAILY cholecalciferol (vitamin D3) [Vitamin D3] 25 mcg (1,000 unit) Tablet 25 mcg PO DAILY acetaminophen 325 mg Tablet 650 mg PO TID MDD 3 gm in 24 hrs ammonium lactate 12 % Lotion 1 appl TOPICAL BID ammonium lactate 12 % Lotion 1 appl TOPICAL DAILY@1800 Rx Instructions: To end 10/20/2025. acetaminophen 325 mg Tablet 650 mg PO Q6H PRN (Reason: Fever/Pain) ondansetron 4 mg Tablet,Disintegrating 4 mg PO Q8H PRN (Reason: Nausea And Vomiting) lactulose 10 gram/15 mL Solution 15 ml PO DAILY PRN (Reason: Constipation) Held doxycycline hyclate 100 mg Capsule 100 mg PO BID Hold Instructions: Resume on 10/25/25. Resume after completing Augmentin dose for UTI Rx Instructions: To end 10/21/2025. Discharge Orders: Discharge Order (Routine); Ordered 10/21/25 Ordered By: Carina Leggett Diet: Advance to usual diet Activity on Discharge: As tolerated Stand Alone Forms: Patient Portal Discharge page Print Language: Portuguese Care Plan Goals: Certainly, Dr. Leggett. Here are appropriate care plan goals and discharge instru ctions for this patient: Care Plan Goals 1. Resolution of Sepsis: - Achieve hemodynamic stability and normalization of vital signs. - Complete appropriate antibiotic therapy based on culture and sensitivity results. 2. Prevention of Recurrent UTI: - Ensure proper suprapubic catheter care and hygiene. - Educate caregivers on signs of infection and catheter maintenance. 3. Correction of Electrolyte Abnormalities: - Normalize sodium and chloride levels. - Maintain adequate hydration and monitor oral intake. 4. Prevention of Complications: - Minimize risk of falls and pressure ulcers due to bed-bound status. - Continue DVT prophylaxis as indicated. 5. Management of Chronic Conditions: - Continue medications for trigeminal neuralgia and other chronic conditions. - Support cognitive and functional needs related to dementia. 6. Advance Care Planning: - Maintain DNR/DNI status and ensure goals of care are clearly communicated to all providers and caregivers. Discharge Instructions To Patient and Caregivers: 1. Medications: - Complete the prescribed course of antibiotics. - Continue all home medications as directed, including oxcarbazepine. - Review any medication changes with your primary care provider. 2. Catheter Care: - Maintain daily hygiene around the suprapubic catheter site. - Monitor for signs of infection: fever, chills, cloudy or foul-smelling urine, redness, swelling, or discharge at the catheter site. - Ensure regular catheter changes as scheduled. 3. Hydration and Nutrition: - Encourage regular oral fluid intake unless otherwise instructed. - Monitor for signs of dehydration (dry mouth, decreased urine output, confusion). 4. Fall and Pressure Ulcer Prevention: - Use fall precautions: assist with transfers, keep environment clutter-free. - Reposition frequently to prevent pressure sores. - Inspect skin daily for redness or breakdown. 5. DVT Prophylaxis: - Continue Lovenox as prescribed, if still indicated. - Monitor for signs of bleeding or bruising. 6. When to Seek Medical Attention: - Fever, chills, or new/worsening confusion. - Signs of catheter blockage or infection. - New or worsening weakness, chest pain, shortness of breath, or bleeding. 7. Follow-Up: - Schedule follow-up with primary care provider within 1 week. - Arrange for home health nursing if needed for catheter care and monitoring. 8. Advance Directives: - DNR/DNI status remains in effect; ensure all caregivers are aware. Health Concerns: See above Plan of Treatment: See above Assessment: See above
--- NOTE | 2025-10-21 12:52 | MHC.CM.PN ---
Per MD rounds patient is medically cleared to discharge. Patient is LTC at the [facility]. [facility] supervisor, Annamaria Crocker has approved the patients return. Discharge information has been faxed to the facility. Nurse to nurse report contact info has been provided to RN. Transport is booked for 4pm bead picker, with Tim.
[2025-10-21 16:00] VITALS: BP 140/82; PULSE 87; RESP 19; TEMP 36.5; O2SAT 92
== END 2025-10-21 16:15 | DRG 698 ==
LOC: HO.ED 22:34 → HO.EDOVER 10-19 00:05 → HO.S3 10-19 15:08
PROVIDERS: Admitting Provider Internal Medicine; Emergency Provider Emergency Medicine; PCP Internal Medicine; Visit Provider Student in an Organized Health Care Education/Training Program
DX: T83.518A Infection and inflammatory reaction due to other urinary catheter, initial encounter (principal); A41.9 Sepsis, unspecified organism; R65.20 Severe sepsis without septic shock; G93.41 Metabolic encephalopathy; N39.0 Urinary tract infection, site not specified; E87.0 Hyperosmolality and hypernatremia; F03.90 Unspecified dementia, unspecified severity, without behavioral disturbance, psychotic disturbance, mood disturbance, and anxiety; G35.D Multiple sclerosis, unspecified; E87.8 Other disorders of electrolyte and fluid balance, not elsewhere classified; Z66 Do not resuscitate; G50.0 Trigeminal neuralgia; L01.00 Impetigo, unspecified; N31.9 Neuromuscular dysfunction of bladder, unspecified; Z74.01 Bed confinement status; Z79.899 Other long term (current) drug therapy
CPT/HCPCS: 36415; 71045; 80048; 80053; 80202; 80307; 81001; 82565; 82947; 83605; 83735; 84484; 85025; 85027; 87040; 87086; 87088; 87186; 87637; 93005; 99285; J0131; J0692; J0696; J1650; J3373; J3374; J7120

== ENCOUNTER → 2025-10-18 20:29 | Outpatient (BNV) | payer MEDICARE, SELFPAY | PROVIDERS: Admitting Provider Internal Medicine; Emergency Provider Emergency Medicine; PCP Internal Medicine; Visit Provider Internal Medicine Cardiovascular Disease | DX: R00.0 Tachycardia, unspecified (principal) | CPT/HCPCS: 93010 ==

== ENCOUNTER → 2025-10-18 21:17 | Outpatient (BNV) | payer MEDICARE, SELFPAY | PROVIDERS: Admitting Provider Internal Medicine; Emergency Provider Emergency Medicine; PCP Internal Medicine; Visit Provider Radiology Diagnostic Radiology | DX: R06.02 Shortness of breath (principal) | CPT/HCPCS: 71045 ==

== ENCOUNTER → 2025-10-18 22:15 | Outpatient (BNV) | payer MEDICARE, SELFPAY | PROVIDERS: Emergency Provider Emergency Medicine; PCP Internal Medicine; Visit Provider Internal Medicine | DX: A41.9 Sepsis, unspecified organism (principal); R65.20 Severe sepsis without septic shock | CPT/HCPCS: 99233 ==

== ENCOUNTER 2025-10-26 06:01 | Outpatient (REF) | payer MEDICARE, SELFPAY ==
--- OUTSIDE RECORDS SUMMARY | 2025-10-26 06:05 | XMS_ITS | Clinical Summary ---
Author Organization [facility] Prior to 04/10/[address] [place] [id number] Care Team Providers Care Sewing Machine Operator Paper Bags Name Role Phone Kristine Resendez MD Primary Care Provider [phone] Allergies No known active allergies Medications Medication [...] age to complete this topic Care Teams Sewing Machine Operator Paper Bags Relationship Specialty Start Date End Date Kristine Resendez MD [address] [address] PCP - General Cisco Engineer 11/07/20
--- OUTSIDE RECORDS SUMMARY | 2025-10-26 06:05 | XMS_ITS | Encounter Summary ---
Author Organization [facility] Address [address] [place] [address] Care Team Providers Care Sign Language Translator Name Role Phone Kristine Resendez MD Primary Care Provider [phone] Encounter Details Date Type Department Care Team (Late Contact Info) Description 07/14/2025 Lab Requisition [facility] - Main Lab [address] [facility] [place] [address] Martir Valencia MD [address] [place] [address] Essential (primary) hypertension Social History Tobacco Use [...] Description 12/20/2025 4:00 PM EST Office Visit [facility] [address] [facility] [address] [place] [id number] Rena Palumbo MD [address] [place] [address] documented as of this encounter Procedures Procedure Name Priority Date/Time Associated Diagnosis Comments COMPLETE BLOOD COUNT Routine 07/14/2025 6:32 AM EDT Essential (primary) hypertension BASIC METABOLIC PANEL Routine 07/14/2025 6:32 AM EDT Essential (primary) hypertension documented in this encounter Results * (ABNORMAL) Basic metabolic panel (07/14/2025 6:32 AM EDT) Sodium 142 133 - 145 mmol/L LAB CHEMISTRY METHOD 07/14/2025 12:35 PM [facility] Potassium 4.1 3.5 - 5.5 mmol/L LAB CHEMISTRY METHOD 07/14/2025 12:35 PM [facility] Chloride 109 96 - 110 mmol/L LAB CHEMISTRY METHOD 07/14/2025 12:35 PM [facility] CO2 26 21 - 32 mmol/L LAB CHEMISTRY METHOD 07/14/2025 12:35 PM [facility] Anion Gap 7 3 - 11 LAB CHEMISTRY METHOD 07/14/2025 12:35 PM [facility] Glucose 81 70 - 100 mg/dL LAB CHEMISTRY METHOD 07/14/2025 12:35 PM [facility] BUN 29(H) 5 - 25 mg/dL LAB CHEMISTRY METHOD 07/14/2025 12:35 PM [facility] Creatinine 0.81 0.70 - 1.30 mg/dL LAB CHEMISTRY METHOD 07/14/2025 12:35 PM [facility] eGFR 97 >=60 mL/min/1. 73m2 LAB CHEMISTRY METHOD 07/14/2025 12:35 PM [facility] Comment:Calculation based on the Chronic Kidney Disease Epidemiology Collaboration (CKD-EPI) equation refit without adjustment for race. BUN/Creatinine Ratio 35.8 LAB CHEMISTRY METHOD 07/14/2025 12:35 PM [facility] Calcium 8.9 8.5 - 10.5 mg/dL LAB CHEMISTRY METHOD 07/14/2025 12:35 PM [facility] Blood Venous blood specimen / Unknown Venipuncture / Unknown 07/14/2025 6:32 AM EDT 07/14/2025 10:40 AM EDT Martir Valencia MD LAB BLOOD ORDERABLES Final Result [facility] [address] [place] [address], [place] [phone] * Complete blood count (07/14/2025 6:32 AM EDT) WBC 5.8 4.8 - 10.8 K/mcL LAB HEMETOLOGY METHOD 07/14/2025 11:06 AM EDT [facility] RBC 5.30 4.50 - 5.50 M/mcL LAB HEMETOLOGY METHOD 07/14/2025 11:06 AM [facility] Hemoglobin 15.2 13.5 - 17.5 g/dL LAB HEMETOLOGY METHOD 07/14/2025 11:06 AM [facility] Hematocrit 46.1 42.0 - 54.0 % LAB HEMETOLOGY METHOD 07/14/2025 11:06 AM [facility] MCV 87.3 79.0 - 98.0 FL LAB HEMETOLOGY METHOD 07/14/2025 11:06 AM [facility] MCH 28.8 27.0 - 32.0 pcg LAB HEMETOLOGY METHOD 07/14/2025 11:06 AM [facility] MCHC 33.0 32.0 - 37.0 g/dL LAB HEMETOLOGY METHOD 07/14/2025 11:06 AM [facility] RDW 12.7 11.0 - 15.0 % LAB HEMETOLOGY METHOD 07/14/2025 11:06 AM [facility] Platelets 252 130 - 400 K/mcL LAB HEMETOLOGY METHOD 07/14/2025 11:06 AM [facility] MPV 10.2 7.0 - 11.0 FL LAB HEMETOLOGY METHOD 07/14/2025 11:06 AM EDT [facility] NRBC 0.0 <1.0 % LAB HEMETOLOGY METHOD 07/14/2025 11:06 AM EDT [facility] NRBC Absolute 0.00 <0.10 K/mcL LAB HEMETOLOGY METHOD 07/14/2025 11:06 AM EDT [facility] Blood Venous blood specimen / Unknown Venipuncture / Unknown 07/14/2025 6:32 AM EDT 07/14/2025 10:40 AM EDT us Martir Valencia MD LAB BLOOD ORDERABLES Final Result [facility] [address] [place] [address], documented in this encounter Visit Diagnoses Diagnosis Essential (primary) hypertension Unspecified essential hypertension documented in this encounter Care Teams Sign Language Translator Relationship Specialty Start Date End Date Kristine Resendez MD [address] [place] [address] PCP - General Real Estate Representative 11/07/20 documented as of this encounter
--- OUTSIDE RECORDS SUMMARY | 2025-10-26 06:05 | XMS_ITS | Encounter Summary ---
Author Organization [facility] Address [address] [place] [address] Care Team Providers Care Sales Applications Engineer Name Role Phone Kristine Resendez MD Primary Care Provider [phone] Encounter Details Date Type Department Care Team (Late Contact Info) Description 07/29/2025 Lab Requisition [facility] - Main Lab 299 [facility] [place] [address] Martir Valencia MD [address] [place] [id number] Adult failure to thrive; Multiple sclerosis (CMS/HCC [...] Description 12/20/2025 4:00 PM EST Office Visit [facility] [address] [facility] [address] [place] [address] Rena Palumbo MD [address] [place], [place] [id number] documented as of this encounter Procedures Procedure [...] mmol/L LAB CHEMISTRY METHOD 07/29/2025 11:18 AM [facility] Potassium 3.8 3.5 - 5.5 mmol/L LAB CHEMISTRY METHOD 07/29/2025 11:18 AM [facility] Chloride 108 96 - 110 mmol/L LAB CHEMISTRY METHOD 07/29/2025 11:18 AM [facility] CO2 25 21 - 32 mmol/L LAB CHEMISTRY METHOD 07/29/2025 11:18 AM [facility] Anion Gap 10 3 - 11 LAB CHEMISTRY METHOD 07/29/2025 11:18 AM [facility] Glucose 92 70 - 100 mg/dL LAB CHEMISTRY METHOD 07/29/2025 11:18 AM [facility] BUN 33(H) 5 - 25 mg/dL LAB CHEMISTRY METHOD 07/29/2025 11:18 AM [facility] Creatinine 0.82 0.70 - 1.30 mg/dL LAB CHEMISTRY METHOD 07/29/2025 11:18 AM [facility] eGFR 97 >=60 mL/min/1. 73m2 LAB CHEMISTRY METHOD 07/29/2025 11:18 AM [facility] Comment:Calculation based on the Chronic Kidney Disease Epidemiology Collaboration (CKD-EPI) equation refit without adjustment for race. BUN/Creatinine Ratio 40.2 LAB CHEMISTRY METHOD 07/29/2025 11:18 AM [facility] Calcium 8.9 8.5 - 10.5 mg/dL LAB CHEMISTRY METHOD 07/29/2025 11:18 AM [facility] Blood Venous blood specimen / Unknown Venipuncture / Unknown 07/29/2025 7:35 AM EDT 07/29/2025 9:42 AM EDT Martir Valencia MD LAB BLOOD ORDERABLES Final Result [facility] [address] [place] [address], * Complete blood count (07/29/2025 7:35 AM EDT) WBC 4.9 4.8 - 10.8 K/mcL LAB HEMETOLOGY METHOD 07/29/2025 12:18 PM EDT [facility] RBC 5.30 4.50 - 5.50 M/mcL LAB HEMETOLOGY METHOD 07/29/2025 12:18 PM EDT [facility] Hemoglobin 14.9 13.5 - 17.5 g/dL LAB HEMETOLOGY METHOD 07/29/2025 12:18 PM EDT [facility] Hematocrit 45.6 42.0 - 54.0 % LAB HEMETOLOGY METHOD 07/29/2025 12:18 PM EDT [facility] MCV 86.9 79.0 - 98.0 FL LAB HEMETOLOGY METHOD 07/29/2025 12:18 PM EDT [facility] MCH 28.4 27.0 - 32.0 pcg LAB HEMETOLOGY METHOD 07/29/2025 12:18 PM EDT [facility] MCHC 32.7 32.0 - 37.0 g/dL LAB HEMETOLOGY METHOD 07/29/2025 12:18 PM EDT [facility] RDW 12.9 11.0 - 15.0 % LAB HEMETOLOGY METHOD 07/29/2025 12:18 PM EDT [facility] Platelets 187 130 - 400 K/mcL LAB HEMETOLOGY METHOD 07/29/2025 12:18 PM EDT [facility] MPV 10.3 7.0 - 11.0 FL LAB HEMETOLOGY METHOD 07/29/2025 12:18 PM EDT [facility] NRBC 0.0 <1.0 % LAB HEMETOLOGY METHOD 07/29/2025 12:18 PM EDT [facility] NRBC Absolute 0.00 <0.10 K/mcL LAB HEMETOLOGY METHOD 07/29/2025 12:18 PM EDT [facility] Blood Venous blood specimen / Unknown Venipuncture / Unknown 07/29/2025 7:35 AM EDT 07/29/2025 9:42 AM EDT us Martir Valencia MD LAB BLOOD ORDERABLES Final Result [facility] [address] [place] [address], documented in this encounter Visit Diagnoses Diagnosis Adult failure to thrive Multiple sclerosis documented in this encounter Care Teams Sales Applications Engineer Relationship Specialty Start Date End Date Kristine Resendez MD [address] [place] [address] PCP - General Crop Puller 11/07/20 documented as of this encounter
--- OUTSIDE RECORDS SUMMARY | 2025-10-26 06:05 | XMS_ITS | Encounter Summary ---
Author Organization [facility] Address [address] [place] [address] Care Team Providers Care Pit Tanner Name Role Phone Kristine Resendez MD Primary Care Provider [phone] Encounter Details Date Type Department Care Team (Late Contact Info) Description 07/05/2025 Lab Requisition [facility] - Main Lab [address] [facility] [place] [address] Martir Valencia MD [address] [place] [address] Adult failure to thrive; Pure hyperglyceridemia; Trigeminal [...] Description 12/20/2025 4:00 PM EST Office Visit [facility] [address] [facility] [address] [place] [address] Rena Palumbo MD [address] [place] [address] documented as of this encounter Procedures Procedure [...] CBC auto differential (07/05/2025 8:50 AM EDT) [facility] WBC 7.9 4.8 - 10.8 K/mcL LAB HEMETOLOGY METHOD [facility] RBC 5.80(H) 4.50 - 5.50 M/mcL LAB HEMETOLOGY METHOD 07/05/2025 1:08 PM [facility] Hemoglobin 16.4 13.5 - 17.5 g/dL LAB HEMETOLOGY METHOD 07/05/2025 1:08 PM [facility] Hematocrit 48.9 42.0 - 54.0 % LAB HEMETOLOGY METHOD 07/05/2025 1:08 PM [facility] MCV 84.9 79.0 - 98.0 FL LAB HEMETOLOGY METHOD 07/05/2025 1:08 PM [facility] MCH 28.5 27.0 - 32.0 pcg LAB HEMETOLOGY METHOD 07/05/2025 1:08 PM [facility] MCHC 33.5 32.0 - 37.0 g/dL LAB HEMETOLOGY METHOD 07/05/2025 1:08 PM [facility] RDW 12.6 11.0 - 15.0 % LAB HEMETOLOGY METHOD 07/05/2025 1:08 PM [facility] Platelets 311 130 - 400 K/mcL LAB HEMETOLOGY METHOD 07/05/2025 1:08 PM [facility] MPV 10.4 7.0 - 11.0 FL LAB HEMETOLOGY METHOD 07/05/2025 1:08 PM [facility] NRBC 0.0 <1.0 % LAB HEMETOLOGY METHOD 07/05/2025 1:08 PM [facility] NRBC Absolute 0.00 <0.10 K/mcL LAB HEMETOLOGY METHOD 07/05/2025 1:08 PM [facility] Neutrophils Relative 76.9 % LAB HEMETOLOGY METHOD 07/05/2025 1:08 PM [facility] Lymphocytes Relative 10.6 % LAB HEMETOLOGY METHOD 07/05/2025 1:08 PM [facility] Monocytes Relative 9.3 % LAB HEMETOLOGY METHOD 07/05/2025 1:08 PM [facility] Eosinophils Relative 1.6 % LAB HEMETOLOGY METHOD 07/05/2025 1:08 PM [facility] Basophils Relative 1.1 % LAB HEMETOLOGY METHOD 07/05/2025 1:08 PM [facility] Immature Granulocytes Relative 0.5 % LAB HEMETOLOGY METHOD 07/05/2025 1:08 PM [facility] Neutrophils Absolute 6.10 1.50 - 7.00 K/mcL LAB HEMETOLOGY METHOD 07/05/2025 1:08 PM [facility] Lymphocytes Absolute 0.84(L) 1.00 - 5.00 K/mcL LAB HEMETOLOGY METHOD 07/05/2025 1:08 PM [facility] Monocytes Absolute 0.74 0.20 - 1.00 K/mcL LAB HEMETOLOGY METHOD 07/05/2025 1:08 PM [facility] Eosinophils Absolute 0.13 0.00 - 0.50 K/mcL LAB HEMETOLOGY METHOD 07/05/2025 1:08 PM EDT [facility] Basophils Absolute 0.09 0.00 - 0.20 K/mcL LAB HEMETOLOGY METHOD 07/05/2025 1:08 PM EDT [facility] Immature Granulocytes Absolute 0.04(H) 0.00 - 0.03 K/mcL LAB HEMETOLOGY METHOD 07/05/2025 1:08 PM EDT [facility] Blood Venous blood specimen / Unknown Venipuncture / Unknown 07/05/2025 8:50 AM EDT 07/05/2025 11:34 AM EDT Martir Valencia MD LAB BLOOD ORDERABLES Final Result [facility] [address] [place] [address], * Comprehensive metabolic panel (07/05/2025 8:50 AM EDT) Sodium 137 133 - 145 mmol/L LAB CHEMISTRY METHOD 07/05/2025 1:27 PM [facility] Potassium 4.3 3.5 - 5.5 mmol/L LAB CHEMISTRY METHOD 07/05/2025 1:27 PM [facility] Chloride 105 96 - 110 mmol/L LAB CHEMISTRY METHOD 07/05/2025 1:27 PM [facility] CO2 24 21 - 32 mmol/L LAB CHEMISTRY METHOD 07/05/2025 1:27 PM [facility] Anion Gap 8 3 - 11 LAB CHEMISTRY METHOD 07/05/2025 1:27 PM [facility] Glucose 87 70 - 100 mg/dL LAB CHEMISTRY METHOD 07/05/2025 1:27 PM [facility] BUN 22 5 - 25 mg/dL LAB CHEMISTRY METHOD 07/05/2025 1:27 PM [facility] Creatinine 0.80 0.70 - 1.30 mg/dL LAB CHEMISTRY METHOD 07/05/2025 1:27 PM [facility] eGFR 98 >=60 mL/min/1. 73m2 LAB CHEMISTRY METHOD 07/05/2025 1:27 PM [facility] Comment:Calculation based on the Chronic Kidney Disease Epidemiology Collaboration (CKD-EPI) equation refit without adjustment for race. BUN/Creatinine Ratio 27.5 LAB CHEMISTRY METHOD 07/05/2025 1:27 PM [facility] Calcium 9.1 8.5 - 10.5 mg/dL LAB CHEMISTRY METHOD 07/05/2025 1:27 PM [facility] AST (SGOT) 19 10 - 42 unit/L LAB CHEMISTRY METHOD 07/05/2025 1:27 PM [facility] ALT (SGPT) 29 10 - 60 unit/L LAB CHEMISTRY METHOD 07/05/2025 1:27 PM [facility] Alkaline Phosphatase 78 42 - 121 unit/L LAB CHEMISTRY METHOD 07/05/2025 1:27 PM [facility] Total Protein 7.2 6.0 - 8.0 g/dL LAB CHEMISTRY METHOD 07/05/2025 1:27 PM [facility] Albumin 3.4 3.2 - 5.0 g/dL LAB CHEMISTRY METHOD 07/05/2025 1:27 PM [facility] Total Bilirubin 0.6 0.0 - 1.4 mg/dL LAB CHEMISTRY METHOD 07/05/2025 1:27 PM [facility] Blood Venous blood specimen / Unknown Venipuncture / Unknown 07/05/2025 8:50 AM EDT 07/05/2025 11:34 AM EDT us Martir Valencia MD LAB BLOOD ORDERABLES Final Result [facility] [address] [place] [address], documented in this encounter Visit Diagnoses Diagnosis Adult failure to thrive Pure hyperglyceridemia Trigeminal neuralgia documented in this encounter Care Teams Pit Tanner Relationship Specialty Start Date End Date Kristine Resendez MD [address] [place] [address] PCP - General Color Printer Operator 11/07/20 documented as of this encounter
--- OUTSIDE RECORDS SUMMARY | 2025-10-26 06:05 | XMS_ITS | Encounter Summary ---
Author Organization [facility] Address [address] [place] [address] Care Team Providers Care Business Continuity Specialist Name Role Phone Kristine Resendez MD Primary Care Provider [phone] Encounter Details Date Type Department Care Team (Late st Contact Info) Description 11/25/2024 Lab Requisition [facility] - Main Lab [address] [facility] [place] [id number] Melissa Morales PA [address] [place] [address] Gross hematuria Social History Tobacco Use Types [...] Description 12/20/2025 4:00 PM EST Office Visit [facility] [address] [place] [phone] Rena Palumbo MD [address] [place] [address] documented as of this encounter Procedures Procedure [...] and pathological findings. 12/04/2024 5:22 PM EST [facility] at 1722 EST Clinical Information Gross hematuria R31.0 Urine Cytology/FISH (now) 12/04/2024 5:22 PM [facility] Gross Description A. Ileal Conduit, [id number]: Received is one ThinPrep slide for cytology screen and one ThinPrep slide for UroV[employer]ion FISH 12/04/2024 5:22 PM [facility] Disclaimer Unless otherwise specified, all tissue is 10% NB formalin fixed and paraffin embedded. Technical pathology services provided by [facility] at [address], [place] [address] (CLIA #[id number]/Caro Faye MD, Environmental Management Specialist) 12/04/2024 5:22 PM [facility] Tissue Ileal biopsy specimen / Unknown 11/18/2024 11/25/2024 11:50 AM EST Melissa RAMIREZ LAB PATHOLOGY ORDERABLES Joi l Result [facility] [address] [place] [address], documented in this encounter Visit Diagnoses Diagnosis Gross hematuria documented in this encounter Care Teams Business Continuity Specialist Relationship Specialty Start Date End Date Kristine Resendez MD [address] [place] [address] PCP - General Small Equipment Operator 11/07/20 documented as of this encounter
--- OUTSIDE RECORDS SUMMARY | 2025-10-26 06:05 | XMS_ITS | Clinical Summary ---
Author Organization [facility] Address [address] [place] [address] Phone Care Team Providers Care Microbiology Lab Analyst Name Role Phone Kristine Resendez MD Primary Care Provider [phone] Allergies Active Allergy Reactions Criticality Noted Date [...] Department Care Team Description 07/29/2025 Lab Requisition [facility] - Main Lab [address] [facility] [place] [address] Martir Valencia MD Adult failure to thrive; Multiple sclerosis ([facility] V24, [facility] V28) from Last 3 Months Surgical History Surgery Date Site/Laterality Comments OTHER SURGICAL HISTORY PROCEDURE:super pubic Medical History Medical History Date Comments MS (multiple sclerosis) DX:MS (m ultiple sclerosis) ([facility]) Social History Tobacco Use Types [...] Description 12/20/2025 4:00 PM EST Office Visit [facility] MS [facility] [address] [place] [phone] Rena Palumbo MD [address] [place] [address] Health Maintenance Due Date Last Done Comments [...] season) 2025 Influenza Vaccine (#1) 2025 08/13/2017 RSV Immunization Adult Patients (1 - 1-dose [...] LAB HEMETOLOGY METHOD 07/29/2025 12:18 PM EDT [facility] RBC 5.30 4.50 - 5.50 M/mcL LAB HEMETOLOGY METHOD 07/29/2025 12:18 PM EDT [facility] Hemoglobin 14.9 13.5 - 17.5 g/dL LAB HEMETOLOGY METHOD 07/29/2025 12:18 PM EDT [facility] Hematocrit 45.6 42.0 - 54.0 % LAB HEMETOLOGY METHOD 07/29/2025 12:18 PM EDT [facility] MCV 86.9 79.0 - 98.0 FL LAB HEMETOLOGY METHOD 07/29/2025 12:18 PM EDT [facility] MCH 28.4 27.0 - 32.0 pcg LAB HEMETOLOGY METHOD 07/29/2025 12:18 PM EDT [facility] MCHC 32.7 32.0 - 37.0 g/dL LAB HEMETOLOGY METHOD 07/29/2025 12:18 PM EDT [facility] RDW 12.9 11.0 - 15.0 % LAB HEMETOLOGY METHOD 07/29/2025 12:18 PM EDT [facility] Platelets 187 130 - 400 K/mcL LAB HEMETOLOGY METHOD 07/29/2025 12:18 PM EDT [facility] MPV 10.3 7.0 - 11.0 FL LAB HEMETOLOGY METHOD 07/29/2025 12:18 PM EDT [facility] NRBC 0.0 <1.0 % LAB HEMETOLOGY METHOD 07/29/2025 12:18 PM EDT [facility] NRBC Absolute 0.00 <0.10 K/mcL LAB HEMETOLOGY METHOD 07/29/2025 12:18 PM EDT [facility] Blood Venous blood specimen / Unknown Venipuncture / Unknown 07/29/2025 7:35 AM EDT 07/29/2025 9:42 AM EDT us Martir Valencia MD LAB BLOOD ORDERABLES Final Result [facility] [address] [place] [address], * (ABNORMAL) Basic metabolic panel (07/29/2025 7:35 AM EDT) Sodium 143 133 - 145 mmol/L LAB CHEMISTRY METHOD 07/29/2025 11:18 AM [facility] Potassium 3.8 3.5 - 5.5 mmol/L LAB CHEMISTRY METHOD 07/29/2025 11:18 AM [facility] Chloride 108 96 - 110 mmol/L LAB CHEMISTRY METHOD 07/29/2025 11:18 AM [facility] CO2 25 21 - 32 mmol/L LAB CHEMISTRY METHOD 07/29/2025 11:18 AM [facility] Anion Gap 10 3 - 11 LAB CHEMISTRY METHOD 07/29/2025 11:18 AM [facility] Glucose 92 70 - 100 mg/dL LAB CHEMISTRY METHOD 07/29/2025 11:18 AM [facility] BUN 33(H) 5 - 25 mg/dL LAB CHEMISTRY METHOD 07/29/2025 11:18 AM [facility] Creatinine 0.82 0.70 - 1.30 mg/dL LAB CHEMISTRY METHOD 07/29/2025 11:18 AM [facility] eGFR 97 >=60 mL/min/1. 73m2 LAB CHEMISTRY METHOD 07/29/2025 11:18 AM [facility] Comment:Calculation based on the Chronic Kidney Disease Epidemiology Collaboration (CKD-EPI) equation refit without adjustment for race. BUN/Creatinine Ratio 40.2 LAB CHEMISTRY METHOD 07/29/2025 11:18 AM [facility] Calcium 8.9 8.5 - 10.5 mg/dL LAB CHEMISTRY METHOD 07/29/2025 11:18 AM [facility] Blood Venous blood specimen / Unknown Venipuncture / Unknown 07/29/2025 7:35 AM EDT 07/29/2025 9:42 AM EDT us Martir Valencia MD LAB BLOOD ORDERABLES Final Result [facility] ([facility] LAB [address] [place] [address], from Last 3 Months Insurance MEDICARE [facility] Care Teams Microbiology Lab Analyst Relationship Specialty Start Date End Date Kristine Resendez MD [address] [place] [address] PCP - General Director Marketing Analytics 11/07/20
[2025-10-26 06:53] LABS: Anion Gap 12 (12-20); Blood Urea Nitrogen 20 mg/dL (9-16); Calcium 8.7 mg/dL (8.4-10.2); Carbon Dioxide 22 mmol/L (22-29); Chloride 110 mmol/L (96-108); Estimated Glomerular Filt Rate > 60; Potassium 4.1 mmol/L (3.3-5.1); Sodium 140 mmol/L (135-145)
== END 2025-10-26 06:02 | disposition home or self-care (01) ==
LOC: HO.HSH2W 06:01
PROVIDERS: Visit Provider Internal Medicine
DX: F03.90 Unspecified dementia, unspecified severity, without behavioral disturbance, psychotic disturbance, mood disturbance, and anxiety (principal)
CPT/HCPCS: 36415; 80048